=== PATIENT | male | born 1990 | race Caucasian/White ===

== ENCOUNTER 2016-10-29 23:12 | Emergency (ER) | payer SELFPAY ==
[~2016-10-29 23:12] MED LIST: IBUP800T23 PO; METH750T2 PO; PHEN100 PO
[2016-10-29 23:15] VITALS: BP 165/90; PULSE 112; RESP 20; TEMP 98.2; O2SAT 100
[2016-10-29] MEDS ORDERED: MELA5TAB15 PO (23:33)
[2016-10-29] MEDS ORDERED: DILA100C PO (23:33)
--- NOTE | 2016-10-29 23:39 | PD ---
HPI Chief Complaint: Head Injury Time Seen by Provider: 23:39 Travel History International Travel<30 days: No Contact w/Intl Traveler<30days: No Traveled to known affect area: No History of Present Illness HPI 25-year-old male came to the emergency room with history of head injury as he was trying to lay back on the bed he hit the back of his head on the wall. Since then patient says he has been feeling groggy. Upon asking he also said that he smoked some marijuana an hour or 2 before this happened. No history of vomiting. Patient is awake and answering questions appropriately. He has history of seizure and is on Dilantin he said. PFSH Past Medical History Narrative Medical List of his past medical, surgical, social and family history as reviewed from the nursing note. Blood Disorders: No Anxiety: No Depression: No Heart Rhythm Problems: No Cancer: No Cardiovascular Problems: No High Cholesterol: No Chest Pain: No Congestive Heart Failure: No Diabetes: No Diminished Hearing: No Genitourinary: No Immune Disorder: No Musculoskeletal: No Neurologic: Yes (SEIZURES) Psychiatric: No Reproductive: No Respiratory: No Immunizations Current: No Seizures: Yes Sleep Apnea: Yes Thyroid Disease: No Past Surgical History Tonsillectomy: Yes Other Surgery: Yes (TONSILS, RIGHT ARM SURGERY) Social History Alcohol Use: No Tobacco Use: Yes (1 ppd) Substance Use: Yes (marijuana) Allergies-Medications (Allergen,Severity, Reaction): Coded Allergies: No Known Allergies (Unverified , 10/10/15) Comments No known drug allergies. Reported Meds & Prescriptions Reported Meds & Active Scripts Active Reported Dilantin (Phenytoin Extended) 100 Mg Cap 100 Mg PO QID Melatonin 5 Mg Tab 5 Mg PO HS Narrative Medication List of his home medications reviewed from the nursing note. Review of Systems Except as stated in HPI: all other systems reviewed are Neg Physical Exam Narrative GENERAL: Awake, alert, moderate distress SKIN: Focused skin assessment warm/dry. HEAD: Atraumatic. Normocephalic. EYES: Pupils equal and round. No scleral icterus. No injection or drainage. ENT: No nasal bleeding or discharge. Mucous membranes pink and moist. NECK: Trachea midline. No JVD. CARDIOVASCULAR: Regular rate and rhythm. No murmur appreciated. RESPIRATORY: No accessory muscle use. Clear to auscultation. Breath sounds equal bilaterally. GASTROINTESTINAL: Abdomen soft, non-tender, nondistended. Hepatic and splenic margins not palpable. MUSCULOSKELETAL: No obvious deformities. No clubbing. No cyanosis. No edema. NEUROLOGICAL: Awake and alert. No obvious cranial nerve deficits. Motor grossly within normal limits. Normal speech. PSYCHIATRIC: Appropriate mood and affect; insight and judgment normal. Data Data Last Documented VS Orders Orders Phenytoin (Dilantin) (10/29/16 23:50) Ct Brain W/O Iv Contrast(Rout) (10/29/16 ) Ice / Cold Pack PRN (10/29/16 23:50) Acetaminophen (Tylenol) (10/30/16 00:00) Complete Blood Count With Diff (10/29/16 23:55) Comprehensive Metabolic Panel (10/29/16 23:55) Labs Laboratory Tests Test 10/30/16 00:45 White Blood Count 7.8 TH/MM3 Red Blood Count 4.18 MIL/MM3 Hemoglobin 13.3 GM/DL Hematocrit 38.7 % Mean Corpuscular Volume 92.6 FL Mean Corpuscular Hemoglobin 31.7 PG Mean Corpuscular Hemoglobin Concent 34.3 % Red Cell Distribution Width 12.9 % Platelet Count 162 TH/MM3 Mean Platelet Volume 7.8 FL Neutrophils (%) (Auto) 61.5 % Lymphocytes (%) (Auto) 27.1 % Monocytes (%) (Auto) 9.8 % Eosinophils (%) (Auto) 1.1 % Basophils (%) (Auto) 0.5 % Neutrophils # (Auto) 4.8 TH/MM3 Lymphocytes # (Auto) 2.1 TH/MM3 Monocytes # (Auto) 0.8 TH/MM3 Eosinophils # (Auto) 0.1 TH/MM3 Basophils # (Auto) 0.0 TH/MM3 CBC Comment DIFF FINAL Differential Comment Blood Urea Nitrogen 16 MG/DL Creatinine 0.95 MG/DL Random Glucose 112 MG/DL Total Protein 6.1 GM/DL Albumin 3.5 GM/DL Calcium Level 8.0 MG/DL Alkaline Phosphatase 53 U/L Aspartate Amino Transf (AST/SGOT) 14 U/L Alanine Aminotransferase (ALT/SGPT) 26 U/L Total Bilirubin 0.2 MG/DL Sodium Level 143 MEQ/L Potassium Level 3.5 MEQ/L Chloride Level 110 MEQ/L Carbon Dioxide Level 26.6 MEQ/L Anion Gap 6 MEQ/L Estimat Glomerular Filtration Rate 95 ML/MIN Phenytoin (Dilantin) Level 3.7 MCG/ML MDM Medical Decision Making Medical Screen Exam Complete: Yes Emergency Medical Condition: Yes Medical Record Reviewed: Yes Differential Diagnosis Intracranial bleed, concussion Narrative Course 1:57 AM blood test results are back. They're within acceptable limits. His Dilantin level is low. Head CT is negative. I'll discharge him home. Procedures EKG Prior to Arrival: No Diagnosis Primary Impression: Closed head injury Qualified Codes: S09.90XA - Unspecified injury of head, initial encounter Additional Impressions: Concussion Qualified Codes: S06.0X0A - Concussion without loss of consciousness, initial encounter Marijuana abuse Referrals: Primary Care Physician Additional Instructions: Apply ice pack on the back of the head. Take Tylenol for headache. Follow-up with your primary care. Med/Other Pt SpecificInfo: No Change to Meds Disposition: 01 DISCHARGE HOME Condition: Stable Zia Maxwell MD Oct 29, 2016 23:39
[2016-10-29 23:40] VITALS: BP 117/59; PULSE 82; RESP 18; O2SAT 95
[2016-10-30] MEDS ORDERED: ACETAMINOPHEN 325 MG TAB PO ONE
--- NOTE | 2016-10-30 00:45 | RADRPT ---
EXAM DATE/TIME: 10/30/2016 00:24 [facility] COMPARISON: CT BRAIN W/O CONTRAST, November 01, 2013, 12:11. INDICATIONS : Trauma, fell and hit back of head. Cephalgia. RADIATION DOSE: 48.51 CTDIvol (mGy) MEDICAL HISTORY : Seizures. SURGICAL HISTORY : None. ENCOUNTER: Initial ACUITY: 1 day PAIN SCALE: 10/10 LOCATION: cranial TECHNIQUE: Multiple contiguous axial images were obtained of the head. Using automated exposure control and adj ustment of the mA and/or kV according to patient size, radiation dose was kept as low as reasonably a chievable to obtain optimal diagnostic quality images. DICOM format image data is available electro nically for review and comparison. FINDINGS: CEREBRUM: The ventricles are normal for age. No evidence of midline shift, mass lesion, hemorrhage or acute in farction. No extra-axial fluid collections are seen. POSTERIOR FOSSA: The cerebellum and brainstem are intact. The 4th ventricle is midline. The cerebellopontine angle i s unremarkable. EXTRACRANIAL: The visualized portion of the orbits is intact. SKULL: The calvaria is intact. No evidence of skull fracture. CONCLUSION: 1. No acute intracranial abnormality. Jonnathan Breen MD on October 30, 2016 at 0:42 Board Certified Radiologist. This report was verified electronically.
[2016-10-30 01:12] LABS: AUTOMATED NEUTROPHIL # 4.8 TH/MM3 (1.8-7.7); BASOPHIL % 0.5 % (0.0-2.0); EOSINOPHIL # 0.1 TH/MM3 (0-0.4); EOSINOPHIL % 1.1 % (0.0-4.0); HEMATOCRIT 38.7 % (39.0-51.0); HEMO FLAGS DIFF FINAL; LYMPH % 27.1 % (9.0-44.0); LYMPHOCYTE # 2.1 TH/MM3 (1.0-4.8); MEAN CELL VOLUME 92.6 FL (80.0-100.0); MEAN CORPUSCULAR HEMOGLOBIN 31.7 PG (27.0-34.0); MEAN CORPUSCULAR HGB CONC 34.3 % (32.0-36.0); MONO % 9.8 % (0.0-8.0); NEUT % 61.5 % (16.0-70.0); PLATELET COUNT 162 TH/MM3 (150-450); RED BLOOD COUNT 4.18 MIL/MM3 (4.50-5.90); RED CELL DISTRIBUTION WIDTH 12.9 % (11.6-17.2); WHITE BLOOD COUNT 7.8 TH/MM3 (4.0-11.0)
[2016-10-30 01:35] LABS: ANION GAP 6 MEQ/L (5-15); AST (GOT) 14 U/L (15-37); BICARBONATE 26.6 MEQ/L (21.0-32.0); BLOOD UREA NITROGEN 16 MG/DL (7-18); CHLORIDE 110 MEQ/L (98-107); GLOMERULAR FILTRATION RATE 95 ML/MIN (>89); POTASSIUM 3.5 MEQ/L (3.5-5.1); SODIUM (NA) 143 MEQ/L (136-145)
[2016-10-30 01:39] LABS: ALKALINE PHOSPHATASE 53 U/L (45-117); ALT (GPT) 26 U/L (12-78); TOTAL BILIRUBIN ADULT 0.2 MG/DL (0.2-1.0)
== END 2016-10-30 02:35 | disposition home or self-care (01) ==
LOC: NEPE 23:12
DX: S06.0X0A Concussion without loss of consciousness, initial encounter (principal); F12.10 Cannabis abuse, uncomplicated; W22.01XA Walked into wall, initial encounter; Y93.89 Activity, other specified
CPT/HCPCS: 70450; 80053; 80185; 85025; 99284

== ENCOUNTER 2017-07-01 18:27 | Emergency (ER) | payer SELFPAY ==
[~2017-07-01] VITALS: Ht 188 cm; Wt 124.0 kg
[~2017-07-01 18:27] MED LIST changes: +DILA100C PO; -IBUP800T23 PO; +MELA5 PO; -METH750T2 PO; -PHEN100 PO
[2017-07-01 18:35] VITALS: BP 144/80; PULSE 95; RESP 18; TEMP 99.7; O2SAT 96
--- NOTE | 2017-07-01 19:35 | PD ---
HPI Chief Complaint: GI Complaint Time Seen by Provider: 19:33 Travel History International Travel<30 days: No Contact w/Intl Traveler<30days: No Traveled to known affect area: No History of Present Illness HPI Patient comes in complaining of a sharp tearing pain to his rectum. She denies any MSM. Patient does state that he is being constipated and has had very hard stools recently. And that the pain started while he was having a bowel movement. Patient denies any alleviating factors. States that is aggravated by having a BM. Patient denies any associated factors such as fever, rash, nausea, vomiting, diarrhea, chest pain, abdominal pain, flank pain. No known drug allergy Past medical history significant for seizures, tonsillectomy, asthma, sleep apnea. PFSH Past Medical History Blood Disorders: No Anxiety: No Depression: No Heart Rhythm Problems: No Cancer: No Cardiovascular Problems: No High Cholesterol: No Chest Pain: No Congestive Heart Failure: No Diabetes: No Diminished Hearing: No Genitourinary: No Immune Disorder: No Musculoskeletal: No Neurologic: Yes (SEIZURES) Psychiatric: No Reproductive: No Respiratory: No Immunizations Current: No Pneumonia: Yes Seizures: Yes Sleep Apnea: Yes (DOESN'T USE CPAP) Thyroid Disease: No Influenza Vaccination: No ?: Not Past Surgical History Tonsillectomy: Yes Other Surgery: Yes (TONSILS, RIGHT ARM SURGERY) Social History Alcohol Use: Yes ("TWICE A YEAR") Tobacco Use: Yes (1 ppd) Substance Use: Yes (marijuana OCCASIONALLY) Allergies-Medications (Allergen,Severity, Reaction): Coded Allergies: No Known Allergies (Unverified Adverse Reaction, Unknown, 07/01/17) Reported Meds & Prescriptions Reported Meds & Active Scripts Active Lidocaine Rectal 5 % Cream 1 Applic RECTAL DAILY PRN Reported Dilantin (Phenytoin Extended) 100 Mg Cap 100 Mg PO 5 TIMES/DAY Melatonin 5 Mg Tab 5 Mg PO HS PRN Review of Systems General / Constitutional: No: Fever Eyes: No: Visual changes HENT: No: Headaches Cardiovascular: No: Chest Pain or Discomfort Respiratory: No: Shortness of Breath Gastrointestinal: Positive: Other Genitourinary: No: Dysuria Musculoskeletal: No: Pain Skin: No Rash Neurologic: No: Weakness Psychiatric: No: Depression Endocrine: No: Polydipsia Hematologic/Lymphatic: No: Easy Bruising Physical Exam Narrative GENERAL: SKIN: Warm and dry. HEAD: Atraumatic. Normocephalic. EYES: Pupils equal and round. No scleral icterus. No injection or drainage. ENT: No nasal bleeding or discharge. Mucous membranes pink and moist. NECK: Trachea midline. No JVD. CARDIOVASCULAR: Regular rate and rhythm. RESPIRATORY: No accessory muscle use. Clear to auscultation. Breath sounds equal bilaterally. GASTROINTESTINAL: Abdomen soft, non-tender, nondistended. GUY Vuong at bedside during rectal exam: No evidence of any external hemorrhoids, the patient is found to have an anal fissure 12:00 region, not actively bleeding at this present time. But sensitive MUSCULOSKELETAL: Extremities without clubbing, cyanosis, or edema. No obvious deformities. NEUROLOGICAL: Awake and alert. No obvious cranial nerve deficits. Motor grossly within normal limits. Five out of 5 muscle strength in the arms and legs. Normal speech. PSYCHIATRIC: Appropriate mood and affect; insight and judgment normal. Data Data Last Documented VS Vital Signs Date Time Temp Pulse Resp B/P (MAP) Pulse Ox O2 Delivery O2 Flow Rate FiO2 07/01/17 18:35 99.7 95 18 144/80 (101) 96 Orders Orders Lidocaine 2% Jelly (Xylocaine 2% Jelly) (07/01/17 20:00) MDM Medical Decision Making Medical Screen Exam Complete: Yes Emergency Medical Condition: Yes Medical Record Reviewed: Yes Differential Diagnosis Hemorrhoid versus anal fissure versus proctitis Narrative Course After clinical evaluation the patient has an anal fissure, no evidence of any infection, no evidence of any active bleeding. Diagnosis Primary Impression: Anal fissure Patient Instructions: Anal Fissure (ED), General Instructions Scripts Lidocaine Rectal (Lidocaine Rectal) 5 % Cream 1 APPLIC RECTAL DAILY Y for PAIN, #1 TUBE 0 Refills Prov: Suman Madsen MD 07/01/17 Disposition: 01 DISCHARGE HOME Condition: Stable Suman Madsen MD July 01, 2017 19:35
[2017-07-01] MEDS ORDERED: LIDO4CRE5 RECTAL (19:43)
[2017-07-01] MEDS ORDERED: LIDOCAINE HCL 2% JELLY 5 ML SYRINGE TOPICAL ONE (20:00)
== END 2017-07-01 20:07 | disposition home or self-care (01) ==
LOC: PHED 18:27
DX: K60.2 Anal fissure, unspecified (principal); G47.30 Sleep apnea, unspecified; F17.200 Nicotine dependence, unspecified, uncomplicated; F12.90 Cannabis use, unspecified, uncomplicated; Z86.69 Personal history of other diseases of the nervous system and sense organs; Z79.899 Other long term (current) drug therapy
CPT/HCPCS: 99284

== ENCOUNTER 2017-07-05 23:15 | Inpatient (IN) | payer SELFPAY ==
[~2017-07-05] VITALS: Ht 188 cm; Wt 123.5 kg
[~2017-07-05 23:15] MED LIST changes: +LIDO4CRE5 RECTAL
[2017-07-05 23:26] VITALS: BP 147/73; PULSE 99; RESP 18; TEMP 99.6; O2SAT 99
--- NOTE | 2017-07-06 00:43 | PD ---
HPI Chief Complaint: Headache Time Seen by Provider: 00:19 Travel History International Travel<30 days: No Contact w/Intl Traveler<30days: No Traveled to known affect area: No History of Present Illness HPI This patient complains of headache. He has bilateral frontal throbbing headache that started at 7 AM this morning. Severity is moderate. He denies head injury or blood thinners. History of epilepsy but has not had a seizure in 2.5 years. He says he had a cold last week but seemed to get over that. He still has a lingering cough producing clear phlegm. He has nausea but no vomiting. Duration 1 day. No alleviating factors. No exacerbating factors. PFSH Past Medical History Blood Disorders: No Anxiety: No Depression: No Heart Rhythm Problems: No Cancer: No Cardiovascular Problems: No High Cholesterol: No Chest Pain: No Congestive Heart Failure: No Diabetes: No Diminished Hearing: No Genitourinary: No Immune Disorder: No Musculoskeletal: No Neurologic: Yes (SEIZURES) Psychiatric: No Reproductive: No Respiratory: No Immunizations Current: No Pneumonia: Yes Seizures: Yes Sleep Apnea: Yes (DOESN'T USE CPAP) Thyroid Disease: No Past Surgical History Tonsillectomy: Yes Other Surgery: Yes (TONSILS, RIGHT ARM SURGERY) Social History Alcohol Use: Yes ("TWICE A YEAR") Tobacco Use: Yes (1 ppd) Substance Use: Yes (marijuana OCCASIONALLY) Allergies-Medications (Allergen,Severity, Reaction): Coded Allergies: No Known Allergies (Unverified Adverse Reaction, Unknown, 07/05/17) Reported Meds & Prescriptions Reported Meds & Active Scripts Active Lidocaine Rectal 5 % Cream 1 Applic RECTAL DAILY PRN Reported Dilantin (Phenytoin Extended) 100 Mg Cap 100 Mg PO 5 TIMES/DAY Melatonin 5 Mg Tab 5 Mg PO HS PRN Review of Systems General / Constitutional: No: Fever Eyes: No: Visual changes HENT: Positive: Headaches Cardiovascular: No: Chest Pain or Discomfort Respiratory: Positive: Cough, No: Shortness of Breath Gastrointestinal: Positive: Nausea, No: Abdominal Pain Genitourinary: No: Dysuria Musculoskeletal: No: Pain Skin: No Rash Neurologic: Positive: Headache (We will), No: Weakness Psychiatric: No: Depression Endocrine: No: Polydipsia Hematologic/Lymphatic: No: Easy Bruising Physical Exam Narrative GENERAL: Well-nourished, well-developed patient in no apparent distress. SKIN: Focused skin assessment reveals no rash and nodules. Skin is Warm and dry. HEAD: Atraumatic. Normocephalic. EYES: Pupils equal and round. No scleral icterus. No injection or drainage. ENT: No nasal bleeding or discharge. Mucous membranes pink and moist. NECK: Trachea midline. No JVD. Neck is supple without meningeal signs. Kernig' s and presents he has are negative CARDIOVASCULAR: Regular rate and rhythm. No murmur appreciated. RESPIRATORY: No accessory muscle use. Clear to auscultation. Breath sounds equal bilaterally. GASTROINTESTINAL: Abdomen soft, non-tender, nondistended. Hepatic and splenic margins not palpable. MUSCULOSKELETAL: No obvious deformities. No clubbing. No cyanosis. No edema. NEUROLOGICAL: Awake and alert. No obvious cranial nerve deficits. Motor grossly within normal limits. Normal speech. PSYCHIATRIC: Appropriate mood and affect; insight and judgment normal. Data Data Last Documented VS Vital Signs Date Time Temp Pulse Resp B/P (MAP) Pulse Ox O2 Delivery O2 Flow Rate FiO2 07/05/17 23:26 99.6 99 18 147/73 (97) 99 MDM Medical Decision Making Medical Screen Exam Complete: Yes Emergency Medical Condition: Yes Medical Record Reviewed: Yes Differential Diagnosis Flu syndrome, meningitis, pneumonia Narrative Course I have reviewed the patient's electronic medical record. I am ordering extensive workup He has no meningeal signs but given his headache and nausea and fever this has to be considered I discussed lumbar puncture with him and he is not happy about it and he wants to think about it and says he will not commit to allowing it to be done at this time. I have ordered labs and chest x-ray and flu test and CT brain We will give him a dose of medication for symptom relief Case checked out at 1 AM, end of shift Klever Castro MD July 06, 2017 00:43
[2017-07-06] MEDS ORDERED: PROMETHAZINE INJ 25 MG/ML VIAL IM ONE (01:00)
[2017-07-06] MEDS ORDERED: MORPHINE SULFATE 4 MG/ML INJ IV PUSH ONE (01:00)
--- NOTE | 2017-07-06 01:20 | RADRPT ---
EXAM DATE/TIME: 07/06/2017 00:58 [facility] COMPARISON: No previous studies available for comparison. INDICATIONS : Fever. MEDICAL HISTORY : Seizures. SURGICAL HISTORY : None. ENCOUNTER: Initial ACUITY: 1 day PAIN SCORE: 0/10 LOCATION: Bilateral chest FINDINGS: A single view of the chest demonstrates the lungs to be symmetrically aerated without evidence of mas s, infiltrate or effusion. The cardiomediastinal contours are unremarkable. Osseous structures are intact. CONCLUSION: No acute disease. Giancarlo Buchanan MD on July 06, 2017 at 1:18 Board Certified Radiologist. This report was verified electronically.
[2017-07-06 01:43] LABS: AUTOMATED NEUTROPHIL # 10.6 TH/MM3 (1.8-7.7); BASOPHIL # 0.1 TH/MM3 (0-0.2); BASOPHIL % 0.4 % (0.0-2.0); EOSINOPHIL % 0.2 % (0.0-4.0); HEMATOCRIT 44.9 % (39.0-51.0); HEMOGLOBIN 15.8 GM/DL (13.0-17.0); LYMPH % 18.2 % (9.0-44.0); LYMPHOCYTE # 2.5 TH/MM3 (1.0-4.8); MEAN CELL VOLUME 89.5 FL (80.0-100.0); MEAN CORPUSCULAR HEMOGLOBIN 31.5 PG (27.0-34.0); MEAN CORPUSCULAR HGB CONC 35.2 % (32.0-36.0); MONO % 5.8 % (0.0-8.0); MONOCYTE # 0.8 TH/MM3 (0-0.9); NEUT % 75.4 % (16.0-70.0); PLATELET COUNT 195 TH/MM3 (150-450); RED BLOOD COUNT 5.02 MIL/MM3 (4.50-5.90); RED CELL DISTRIBUTION WIDTH 12.9 % (11.6-17.2)
[2017-07-06 01:50] LABS: PROTHROMBIN TIME - PATIENT 10.6 SEC (9.8-11.6)
[2017-07-06 01:54] LABS: BICARBONATE 22.9 MEQ/L (21.0-32.0); CALCIUM 8.6 MG/DL (8.5-10.1); CREATININE 0.79 MG/DL (0.60-1.30)
--- NOTE | 2017-07-06 02:01 | RADRPT ---
EXAM DATE/TIME: 07/06/2017 01:36 [facility] COMPARISON: CT BRAIN W/O CONTRAST, October 30, 2016, 0:24. INDICATIONS : Headaches. RADIATION DOSE: 49.85 CTDIvol (mGy) MEDICAL HISTORY : Seizures. Asthma SURGICAL HISTORY : None. ENCOUNTER: Initial ACUITY: 1 day PAIN SCALE: 10/10 LOCATION: cranial TECHNIQUE: Multiple contiguous axial images were obtained of the head. Using automated exposure control and adj ustment of the mA and/or kV according to patient size, radiation dose was kept as low as reasonably a chievable to obtain optimal diagnostic quality images. DICOM format image data is available electro nically for review and comparison. FINDINGS: CEREBRUM: The ventricles are normal for age. No evidence of midline shift, mass lesion, hemorrhage or acute in farction. No extra-axial fluid collections are seen. POSTERIOR FOSSA: The cerebellum and brainstem are intact. The 4th ventricle is midline. The cerebellopontine angle i s unremarkable. EXTRACRANIAL: The visualized portion of the orbits is intact. SKULL: The calvaria is intact. No evidence of skull fracture. CONCLUSION: Normal examination for a patient of this age. No significant change has occurred. Giancarlo Buchanan MD on July 06, 2017 at 1:57 Board Certified Radiologist. This report was verified electronically.
[2017-07-06] MEDS ORDERED: PROCHLORPERAZINE INJ 10 MG/2 ML VIAL IV PUSH ONE (02:45)
[2017-07-06] MEDS ORDERED: diphenhydrAMINE HCL 50 MG/ML VIAL IV PUSH ONE (02:45)
[2017-07-06] MEDS ORDERED: cefTRIAXone INJ 2,000 MG in SODIUM CHLORIDE 0.9% INJ 100 ML IV ONE (03:30)
[2017-07-06] MEDS ORDERED: VANCOMYCIN INJ 2,250 MG in SODIUM CHLORID 0.9% 500 ML INJ 500 ML IV ONE (03:30)
--- NOTE | 2017-07-06 03:43 | PD ---
Physical Exam Date Seen by Provider: July 06, 2017 Time Seen by Provider: 03:37 Data Data Last Documented VS Vital Signs Date Time Temp Pulse Resp B/P (MAP) Pulse Ox O2 Delivery O2 Flow Rate FiO2 07/05/17 23:26 99.6 99 18 147/73 (97) 99 Orders Orders Iv Access Insert/Monitor (07/06/17 00:44) Complete Blood Count With Diff (07/06/17 00:44) Basic Metabolic Panel (Bmp) (07/06/17 00:44) Prothrombin Time / Inr (Pt) (07/06/17 00:44) Act Partial Throm Time (Ptt) (07/06/17 00:44) Ct Brain W/O Iv Contrast(Rout) (07/06/17 ) Chest, Single Ap (07/06/17 ) Influenzae A/B Antigen (07/06/17 00:44) Promethazine Inj (Phenergan Inj) (07/06/17 01:00) Morphine Inj (Morphine Inj) (07/06/17 01:00) Diphenhydramine Inj (Benadryl Inj) (07/06/17 02:45) Prochlorperazine Inj (Compazine Inj) (07/06/17 02:45) Csf Cell Count + Differential (07/06/17 02:36) Glucose, Csf (07/06/17 02:36) Total Protein, Csf (07/06/17 02:36) Csf Culture And Gram Stain (07/06/17 02:36) Blood Culture (07/06/17 03:29) Ceftriaxone Inj (Rocephin Inj) (07/06/17 03:30) Vancomycin Inj (Vancomycin Inj) (07/06/17 03:30) Acyclovir Inj (Zovirax Inj) (07/06/17 03:45) Admit Order (Ed Use Only) (07/06/17 ) Vital Signs (Adult) Q4H (07/06/17 04:25) Diet Npo (07/06/17 Breakfast) Activity Oob With Assistance (07/06/17 04:25) Notify Dr: Other (07/06/17 04:25) Labs Laboratory Tests Test 07/06/17 01:20 White Blood Count 14.0 TH/MM3 Red Blood Count 5.02 MIL/MM3 Hemoglobin 15.8 GM/DL Hematocrit 44.9 % Mean Corpuscular Volume 89.5 FL Mean Corpuscular Hemoglobin 31.5 PG Mean Corpuscular Hemoglobin Concent 35.2 % Red Cell Distribution Width 12.9 % Platelet Count 195 TH/MM3 Mean Platelet Volume 8.0 FL Neutrophils (%) (Auto) 75.4 % Lymphocytes (%) (Auto) 18.2 % Monocytes (%) (Auto) 5.8 % Eosinophils (%) (Auto) 0.2 % Basophils (%) (Auto) 0.4 % Neutrophils # (Auto) 10.6 TH/MM3 Lymphocytes # (Auto) 2.5 TH/MM3 Monocytes # (Auto) 0.8 TH/MM3 Eosinophils # (Auto) 0.0 TH/MM3 Basophils # (Auto) 0.1 TH/MM3 CBC Comment DIFF FINAL Differential Comment Prothrombin Time 10.6 SEC Prothromb Time International Ratio 1.0 RATIO Activated Partial Thromboplast Time 26.6 SEC Blood Urea Nitrogen 13 MG/DL Creatinine 0.79 MG/DL Random Glucose 111 MG/DL Calcium Level 8.6 MG/DL Sodium Level 139 MEQ/L Potassium Level 3.9 MEQ/L Chloride Level 108 MEQ/L Carbon Dioxide Level 22.9 MEQ/L Anion Gap 8 MEQ/L Estimat Glomerular Filtration Rate 117 ML/MIN [facility] Medical Record Reviewed: Yes Supervised Visit with GIULIANA: Yes Interpretation(s) CBC & BMP Diagram 07/06/17 01:20 Calcium Level 8.6 Last [address] 07/06/17 0000 Signed Impressions: Service Date/Time: Thursday, July 06, 2017 01:36 - CONCLUSION: Normal examination for a patient of this age. No significant change has occurred. Giancarlo Buchanan MD Chest X-Ray 07/06/17 0000 Signed Impressions: Service Date/Time: Thursday, July 06, 2017 00:58 - CONCLUSION: No acute disease. Giancarlo Buchanan MD Differential Diagnosis . Narrative Course This is a 26-year-old white male who is seen earlier by Dr. BARTH and I was asked to follow-up on the patient's laboratory tests and CAT scan. He had a concern that the patient may potentially be getting secondary meningitis. He has requested that the patient undergo lumbar puncture. I have obtained consent for lumbar puncture from the patient. We discussed the benefits and the risks. 3 attempts at obtaining CSF have been unsuccessful. The patient has been empirically treated for potential meningitis. He is given 2 g of Rocephin IV and 20 mg/kg of vancomycin as well as 10 mg/kg of acyclovir. The patient will be admitted to the [facility] service and have LP under fluoroscopy by IR. 2 sets of blood cultures have also been added on. I discussed the case with Dr. Kimbrough. She is aware of the patient and plan to admit the patient. She agrees that having IR perform LP in the morning and she has declined to attempt LP herself. This is cephalgia, fever rule out meningitis The case has been discussed with Dr. Oliver who is agreed to admit the patient for observation Procedures Procedure Narrative LUMBAR PUNCTURE: The patient was placed in the seated position leaning over bedside table. The lumbar area of the back was prepped with Betadine and sterilely draped. The L3 -- L4 interspace was infiltrated with 1% lidocaine plain. Number 21 gauge LP needle was placed in the interspace. 3 attempts at obtaining CSF have been performed unsuccessfully.. Patient tolerated procedure well. Patient is made aware of the failed attempts. Diagnosis Primary Impression: Cephalgia Additional Impressions: Fever Rule out meningitis Admitting Information Admitting Physician Requests: Observation Condition: Stable Giancarlo Roberson July 06, 2017 03:43
[2017-07-06] MEDS ORDERED: ACYCLOVIR INJ 1,050 MG in SODIUM CHLORIDE 0.9% INJ 150 ML IV ONE (03:45)
[2017-07-06 04:00] VITALS: BP 129/87; PULSE 96; RESP 16; O2SAT 100
[2017-07-06] MEDS ORDERED: SODIUM CHLOR 0.9% 1000 ML INJ 1,000 ML IV SCH (04:19)
[2017-07-06] MEDS ORDERED: GADODIAMIDE PF 287 MG/ML 20 ML VIAL (for RAD MRI) IVCONTRAST ONE (04:27)
[2017-07-06] MEDS ORDERED: SODIUM CHLORIDE 0.9% FLUSH 10 ML FLUSH IV FLUSH PRN (04:30)
[2017-07-06] MEDS ORDERED: ONDANSETRON ODT 4 MG TAB PO PRN (04:30)
[2017-07-06] MEDS ORDERED: SENNOSIDES 8.6 MG TAB PO PRN (04:30)
[2017-07-06] MEDS ORDERED: NALOXONE HCL 0.4 MG/ML AMP IV PUSH PRN (04:30)
[2017-07-06] MEDS ORDERED: BISACODYL 10 MG SUPP RECTAL PRN (04:30)
[2017-07-06] MEDS ORDERED: LACTULOSE SYRUP 20 GM/30 ML CUP PO PRN (04:30)
[2017-07-06] MEDS ORDERED: ACETAMINOPHEN 325 MG TAB PO PRN (04:30)
[2017-07-06] MEDS ORDERED: Vancomycin Consult Pharmacy 1 EA OTHER SCH (04:30)
[2017-07-06] MEDS ORDERED: MAGNESIUM HYDROXIDE SUSP 30 ML CUP PO PRN (04:30)
[2017-07-06] MEDS ORDERED: PHENYTOIN SODIUM 100 MG CAP PO ONE ×2 (05:30→15:30)
[2017-07-06 08:00] VITALS: BP 133/82; PULSE 95; RESP 20; TEMP 98.1; O2SAT 97
[2017-07-06] MEDS: SODIUM CHLORIDE 0.9% FLUSH 10 ML FLUSH IV FLUSH SCH ×2 (08:20→21:00)
[2017-07-06] MEDS: DOCUSATE SODIUM 50 MG/SENNA 8.6 MG TAB PO SCH ×2 (08:21→21:35)
[2017-07-06] MEDS: ACETAMIN 325 MG/BUTALBITAL 50 MG/CAFFEINE 40 MG TAB PO PRN ×2 (10:22→21:36)
--- NOTE | 2017-07-06 11:51 | RADRPT ---
EXAM DATE/TIME: 07/06/2017 11:24 [facility] COMPARISON: No previous studies available for comparison. INDICATIONS : Patient presents with severe headaches in need of lumbar puncture with opening pressures for further evaluation. MEDICAL HISTORY : Smoking hx Seizures SURGICAL HISTORY : Tonsillectomy Right arm sx ENCOUNTER: Initial ACUITY: 1 day PAIN SCORE: 10/10 LOCATION: Bilateral Frontal throbbing headache LUMBAR PUNCTURE TIME: 11:21 hours FLUORO TIME: 0.21 minutes IMAGE SERIES: 2 ACCESS LEVEL: L3-4 OPENING PRESSURE: 27 cm of water CLOSING PRESSURE: Not requested. FLUID: 10 cc of clear CSF was collected and sent to the laboratory for analysis. PROCEDURE : 1. Fluoroscopic guided lumbar puncture. 2. Recording of opening pressure. The risks, benefits and alternatives to the procedure were explained and verbal and written consent w as obtained. The site was prepped in sterile fashion. Full sterile technique was used, including ca p, mask, sterile gloves and gown and a large sterile sheet. Hand hygiene and 2% chlorhexidine and/or betadine/alcohol prep was utilized per protocol for cutaneous antisepsis. The skin and subcutaneous tissues were infiltrated with local anesthetic solution. With fluoroscopic guidance the lumbar thecal sac was punctured at the above level described above and the opening pressure was recorded. The above described fluid was removed without difficulty. The patient tolerated the procedure well and there were no complications. CONCLUSION: Uncomplicated fluoroscopically guided lumbar puncture with pressures as above. Jonnathan Breen MD on July 06, 2017 at 11:48 Board Certified Radiologist. This report was verified electronically.
[2017-07-06 12:00] VITALS: BP 141/76; PULSE 80; RESP 20; TEMP 97.8; O2SAT 99
--- NOTE | 2017-07-06 12:10 | HHI.HP ---
[facility] No Primary Care Physician Admission Diagnosis Cephalgia, fever, rule out meningitis Diagnoses: (1) History of seizure (2) Cephalalgia Chief Complaint: Bilateral frontal headaches Travel History International Travel<30 Days: No Contact w/Intl Traveler <30 Da: No Traveled to Known Affected Are: No History of Present Illness 26-year-old male with a history of seizure disorder however without any seizure activity over the past 3 years presented to the ED last night for evaluation of bilateral frontal throbbing headache, which started around 7 AM yesterday. Patient reported severe frontal pain. Stated the headaches are associated with photophobia, nausea without any emesis. He however denied any neck pain, febrile episode. He only complains of lingering phlegm producing cough. Review of Systems Except as stated in HPI: all other systems reviewed are Neg Past Family Social History Past Medical History Seizure disorder Obstructive sleep apnea Past Surgical History Tonsillectomy Right arm surgery Reported Medications Dilantin (Phenytoin Extended) 100 Mg Cap 100 Mg PO 5 TIMES/DAY Melatonin 5 Mg Tab 5 Mg PO HS PRN Allergies: Coded Allergies: No Known Allergies (Unverified Adverse Reaction, Unknown, 07/05/17) Family History One aunt with migraine headache Social History Alcohol Use: Yes ("TWICE A YEAR") Tobacco Use: Yes (1 ppd) Substance Use: Yes (marijuana OCCASIONALLY) Physical Exam Vital Signs Vital Signs Date Time Temp Pulse Resp B/P (MAP) Pulse Ox O2 Delivery O2 Flow Rate FiO2 07/06/17 08:00 98.1 95 20 133/82 (99) 97 07/06/17 06:15 07/06/17 04:00 96 16 129/87 (101) 100 Room Air 07/05/17 23:26 99.6 99 18 147/73 (97) 99 Physical Exam GENERAL: This is a well-nourished, well-developed patient, in no apparent distress. SKIN: No rashes, ecchymoses or lesions. Cool and dry. HEAD: Atraumatic. Normocephalic. No temporal or scalp tenderness. EYES: Pupils equal round and reactive. Extraocular motions intact. No scleral icterus. No injection or drainage. ENT: Nose without bleeding, purulent drainage or septal hematoma. Throat without erythema, tonsillar hypertrophy or exudate. Uvula midline. Airway patent. NECK: Trachea midline. No JVD or lymphadenopathy. Supple, nontender, no meningeal signs. CARDIOVASCULAR: Regular rate and rhythm without murmurs, gallops, or rubs. RESPIRATORY: Clear to auscultation. Breath sounds equal bilaterally. No wheezes , rales, or rhonchi. GASTROINTESTINAL: Abdomen soft, non-tender, nondistended. No hepato-splenomegaly , or palpable masses. No guarding. MUSCULOSKELETAL: Extremities without clubbing, cyanosis, or edema. No joint tenderness, effusion, or edema noted. No calf tenderness. Negative Homans sign bilaterally. NEUROLOGICAL: Awake and alert. Cranial nerves II through XII intact. Motor and sensory grossly within normal limits. Five out of 5 muscle strength in all muscle groups. Normal speech. Laboratory Laboratory Tests Test 07/06/17 01:20 07/06/17 11:21 White Blood Count 14.0 Red Blood Count 5.02 Hemoglobin 15.8 Hematocrit 44.9 Mean Corpuscular Volume 89.5 Mean Corpuscular Hemoglobin 31.5 Mean Corpuscular Hemoglobin Concent 35.2 Red Cell Distribution Width 12.9 Platelet Count 195 Mean Platelet Volume 8.0 Neutrophils (%) (Auto) 75.4 Lymphocytes (%) (Auto) 18.2 Monocytes (%) (Auto) 5.8 Eosinophils (%) (Auto) 0.2 Basophils (%) (Auto) 0.4 Neutrophils # (Auto) 10.6 Lymphocytes # (Auto) 2.5 Monocytes # (Auto) 0.8 Eosinophils # (Auto) 0.0 Basophils # (Auto) 0.1 CBC Comment DIFF FINAL Differential Comment Prothrombin Time 10.6 Prothromb Time International Ratio 1.0 Activated Partial Thromboplast Time 26.6 Blood Urea Nitrogen 13 Creatinine 0.79 Random Glucose 111 Calcium Level 8.6 Sodium Level 139 Potassium Level 3.9 Chloride Level 108 Carbon Dioxide Level 22.9 Anion Gap 8 Estimat Glomerular Filtration Rate 117 Date/Time Source Procedure Growth Status 07/06/17 04:10 Blood Peripheral Aerobic Blood Culture Pending Received 07/06/17 04:10 Blood Peripheral Anaerobic Blood Culture Pending Received 07/06/17 11:21 Cerebral Spinal Fluid Lumbar Puncture Acid Fast Stain Pending Received 07/06/17 11:21 Cerebral Spinal Fluid Lumbar Puncture Mycobacterial Culture Pending Received 07/06/17 01:20 Nasal Washing Influenza Types A,B Antigen (SAMREEN) - Final NEGATIVE FOR FLU A AND B ANTIGEN.... Complete Result Diagram: 07/06/17 0120 07/06/17 0120 Imaging Last Impressions Lumbar Puncture Fluoroscopy 07/06/17 0000 Signed Impressions: Service Date/Time: Thursday, July 06, 2017 11:24 - CONCLUSION: Uncomplicated fluoroscopically guided lumbar puncture with pressures as above. Jonnathan Breen MD Head CT 07/06/17 0000 Signed Impressions: Service Date/Time: Thursday, July 06, 2017 01:36 - CONCLUSION: Normal examination for a patient of this age. No significant change has occurred. Giancarlo Buchanan MD Chest X-Ray 07/06/17 0000 Signed Impressions: Service Date/Time: Thursday, July 06, 2017 00:58 - CONCLUSION: No acute disease. Giancarlo Buchanan MD Septic Shock Reassessment Septic shock perfusion: reassessment completed Caprini VTE Risk Assessment Caprini VTE Risk Assessment: No/Low Risk (score <= 1) Caprini Risk Assessment Model Point Value = 1 Point Value = 2 Point Value = 3 Point Value = 5 Age 41-60 Minor surgery BMI > 25 kg/m2 Swollen legs Varicose veins or History of unexplained or recurrent spontaneous Oral contraceptives or hormone replacement Sepsis (< 1 month) Serious lung disease, including pneumonia (< 1 month) Abnormal pulmonary function Acute myocardial infarction Congestive heart failure (< 1 month) History of inflammatory bowel disease Medical patient at bed rest Age 61-74 Arthroscopic surgery Major open surgery (> 45 min) Laparoscopic surgery (> 45 min) Malignancy Confined to bed (> 72 hours) Immobilizing plaster cast Central venous access Age >= 75 History of VTE Family history of VTE Factor V Leiden Prothrombin [id number] Lupus anticoagulant Anticardiolipin antibodies Elevated serum homocysteine Heparin-induced thrombocytopenia Other congenital or acquired thrombophilia Stroke (< 1 month) Elective arthroplasty Hip, pelvis, or leg fracture Acute spinal cord injury (< 1 month) Prophylaxis Regimen Total Risk Factor Score Risk Level Prophylaxis Regimen 0-1 Low Early ambulation 2 Moderate Order ONE of the following: *Sequential Compression Device (SCD) *Heparin 5000 units SQ BID 3-4 Higher Order ONE of the following medications: *Heparin 5000 units SQ TID *Enoxaparin/Lovenox 40 mg SQ daily (WT < 150 kg, CrCl > 30 mL/min) *Enoxaparin/Lovenox 30 mg SQ daily (WT < 150 kg, CrCl > 10-29 mL/min) *Enoxaparin/Lovenox 30 mg SQ BID (WT < 150 kg, CrCl > 30 mL/min) AND/OR *Sequential Compression Device (SCD) 5 or more Highest Order ONE of the following medications: *Heparin 5000 units SQ TID (Preferred with Epidurals) *Enoxaparin/Lovenox 40 mg SQ daily (WT < 150 kg, CrCl > 30 mL/min) *Enoxaparin/Lovenox 30 mg SQ daily (WT < 150 kg, CrCl > 10-29 mL/min) *Enoxaparin/Lovenox 30 mg SQ BID (WT < 150 kg, CrCl > 30 mL/min) AND *Sequential Compression Device (SCD) Assessment and Plan Problem List: (1) Cephalalgia ICD Code: R51 - Headache (2) History of seizure ICD Code: Z87.898 - Personal history of other specified conditions Assessment and Plan 26-year-old man with Cephalgia Bilateral frontal headache Head CT noted and reviewed by me without any acute finding Chest x-ray noted and reviewed by me without any pulmonary disease Rule out meningitis LP pending, continue with empiric treatment with antibiotics Start Fioricet Neurology consultation as needed History of seizure disorder Resume Dilantin, and monitor level Tobacco abuse Tobacco counseling cessation provided DVT prophylaxis: Low risk for VTE Code Status Full code Discussed Condition With Patient Barber Rojo MD July 06, 2017 12:10
[2017-07-06 12:17] LABS: SUPERNATE COLOR TUBE #1 CLEAR (CLEAR)
[2017-07-06 12:19] LABS: TOTAL PROTEIN,CSF 161.4 MG/DL (15.0-45.0)
[2017-07-06 12:36] LABS: RBC TUBE #4 25 /MM3; WBC TUBE #4 495 /MM3 (0-10)
[2017-07-06 12:41] LABS: CSF LYMPHOCYTES 92 %; CSF MONOCYTES 7 %; CSF NEUTROPHILS 1 %
[2017-07-06] MEDS: ACYCLOVIR INJ 1,050 MG in SODIUM CHLORIDE 0.9% INJ 150 ML IV SCH ×2 (13:02→20:00)
[2017-07-06 16:00] VITALS: BP 146/91; PULSE 93; RESP 20; TEMP 98.3; O2SAT 97
[2017-07-06] MEDS ORDERED: VANCOMYCIN INJ 2,500 MG in SODIUM CHLORID 0.9% 500 ML INJ 500 ML IV SCH (16:00)
[2017-07-06] MEDS ORDERED: VANCOMYCIN INJ 2,250 MG in SODIUM CHLORID 0.9% 500 ML INJ 500 ML IV SCH (16:00)
--- NOTE | 2017-07-06 16:18 | PD.CONS ---
History of Present Illness Service Neurology Consult Requested By medical Reason for Consult headache Primary Care Physician No Primary Care Physician History of Present Illness 26-year-old male admitted for severe headaches. started yesterday, holocephalic. throbbing, mild neck pain. had a fever yesterday. no focal weakness. no vision loss. 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 no obvious known sick contacts. 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 no head/neck trauma. Review of Systems Except as stated in HPI: all other systems reviewed are Neg Past Family Social History Past Medical History Seizure disorder Obstructive sleep apnea Past Surgical History Tonsillectomy Right arm surgery Reported Medications Dilantin (Phenytoin Extended) 100 Mg Cap 100 Mg PO 5 TIMES/DAY Melatonin 5 Mg Tab 5 Mg PO HS PRN Allergies: Coded Allergies: No Known Allergies (Unverified Adverse Reaction, Unknown, 07/05/17) Family History One aunt with migraine headache Social History Alcohol Use: Yes ("TWICE A YEAR") Tobacco Use: Yes (1 ppd) Review of Systems All other ROS: ROS reviewed as documented in chart Past Family Social History Allergies: Coded Allergies: No Known Allergies (Unverified Adverse Reaction, Unknown, 07/05/17) Active Ordered Medications Current Medications Medications (Trade) Dose Ordered Sig/Arely Route Start Time Stop Time Status Last Admin Acyclovir Sodium 1050 mg/Sodium Chloride 150 ml @ 150 mls/hr Q8H IV 07/06/17 12:00 07/06/17 13:02 Pharmacy Profile Note 0 ml @ 0 mls/hr UNSCH OTHER 07/06/17 04:30 Ceftriaxone Sodium 2000 mg/ Sodium Chloride 100 ml @ 200 mls/hr Q12H IV 07/06/17 16:00 (NS Flush) 2 ml UNSCH PRN IV FLUSH 07/06/17 04:30 (NS Flush) 2 ml BID IV FLUSH 07/06/17 09:00 07/06/17 08:20 (Tylenol) 650 mg Q4H PRN PO 07/06/17 04:30 (Zofran Odt) 4 mg Q6H PRN PO 07/06/17 04:30 (Narcan Inj) 0.4 mg UNSCH PRN IV PUSH 07/06/17 04:30 ([place]-Colace) 1 tab BID PO 5/15/18 09:00 07/06/17 08:21 (Milk Of Magnesia Liq) 30 ml Q12H PRN PO 07/06/17 04:30 (Senokot) 17.2 mg Q12H PRN PO 07/06/17 04:30 (Dulcolax Supp) 10 mg DAILY PRN RECTAL 07/06/17 04:30 (Lactulose Liq) 30 ml DAILY PRN PO 07/06/17 04:30 (Fioricet 325-50-40) 1 tab Q6H PRN PO 07/06/17 09:45 07/06/17 10:22 Vancomycin HCl 2500 mg/Sodium Chloride 525 ml @ 250 mls/hr Q12H IV 07/06/17 16:00 [place] Ordered [facility] Info) SPECIFIC LAB TO BE ... ONCE ONCE .XX 07/08/17 03:45 07/08/17 03:46 (Dilantin) 100 mg 5 TIMES A DAY PO 07/06/17 18:00 Exam I&O / VS Vital Signs Date Time Temp Pulse Resp B/P (MAP) Pulse Ox O2 Delivery O2 Flow Rate FiO2 07/06/17 12:00 97.8 80 20 141/76 (97) 99 07/06/17 08:00 98.1 95 20 133/82 (99) 97 07/06/17 06:15 07/06/17 04:00 96 16 129/87 (101) 100 Room Air 07/05/17 23:26 99.6 99 18 147/73 (97) 99 General: Alert and Oriented Eye: EOMI, Normal conjuctiva Respiratory: Non-labored respirations Cardiology: Normal rate Musculoskeletal: ROM Neurologic: Alert, Oriented, Normal sensory, Normal motor, No focal defects, CN II-XII intact, Normal DTR's Psychiatric: Cooperative, Appropriate mood & affect, Normal judgement Exam Comments alert, ox 3, follows, ou 3-2mm, eomi, neck rom full but mild tenderness, able to flex head to chest, no religion tenderness, osman to gravity, brisk but sym le reflexes, no clonus, planterflexor Review/Management Diagnosis/Plan: (1) Viral meningitis ICD Codes: A87.9 - Viral meningitis, unspecified Status: Acute Plan: lymphocytic pleocytosis with elevated wbc >400 and elevated protein and clinical symptoms suggestive of vial meningitis recs f/u mri brain w/wo contrast/mrv brain ID eval continue iv acyclovir pain control follow exam (2) History of seizure ICD Codes: Z87.898 - Personal history of other specified conditions Status: Chronic Plan: eeg f/u dilantin level Chapin Baptiste MD July 06, 2017 16:18
--- NOTE | 2017-07-06 16:55 | PD.ID.CON ---
History of Present Illness Service Infectious disease Consult Requested By Hospitalist service Reason for Consult Evaluation and management of possible meningitis Primary Care Physician No Primary Care Physician Diagnoses: History of Present Illness Patient seen and examined with Dr. Wheeler This is a 26-year-old male with a history of seizure disorder on Dilantin who presented to [facility] ED with complaints of severe frontal headache and neck pain x 2 days. Patient reports associated photophobia and nausea but no emesis. He denies any associated fever or chills. He denies any vision changes. He denies any ear pain/drainage/ringing. He denies any nasal drainage or sinus problems. Patient states he had a upper respiratory infection last week and completed 5 days of Amoxicillin. Patient states he responded well to the treatment and felt good except for lingering cough with whitish/brown sputum production. Patient reports his last "mini seizure" was last week. He is prescribed Dilantin which he is to take 200mg in am, 100mg in afternoon and 200mg at night. Due to heartburn associated with taking the medication, he takes 100mg 5 times a day and admits to occasionally missing doses. He has a history of concussion last December. He reports occasional cold sores the last one being a month ago but denies any genital involvement. He denies any previous history of meningitis. He denies any recent travel or tick bites. He denies any known sick contacts. Patient underwent a lumbar puncture with initial CSF culture showing many WBCs and no organisms. CSF fluid with 495 WBCs and elevated total protein of 161.4. Patient is afebrile. His CBC was significant for leukocytosis with white count of 14, neutrophil % 75.4 and neutrophil count 10.6. Chemistry panel was essentially unremarkable. His Phenytoin level is low at 2.8. Infectious disease consulted for evaluation and management of possible meningitis. (Tiffanie Gallardo) Review of Systems Except as stated in HPI: all other systems reviewed are Neg (Tiffanie Gallardo) Past Family Social History Allergies: Coded Allergies: No Known Allergies (Unverified Adverse Reaction, Unknown, 07/05/17) Past Medical History Seizure disorder Past Surgical History Tonsillectomy Right arm surgery Reported Medications Lidocaine Rectal 5 % Cream 1 Applic RECTAL DAILY PRN Dilantin (Phenytoin Extended) 100 Mg Cap 100 Mg PO 5 TIMES/DAY Melatonin 5 Mg Tab 5 Mg PO HS PRN Active Ordered Medications Current Medications Medications (Trade) Dose Ordered Sig/Arely Route Start Time Stop Time Status Last Admin Acyclovir Sodium 1050 mg/Sodium Chloride 150 ml @ 150 mls/hr Q8H IV 07/06/17 12:00 07/06/17 13:02 Pharmacy Profile Note 0 ml @ 0 mls/hr UNSCH OTHER 07/06/17 04:30 Ceftriaxone Sodium 2000 mg/ Sodium Chloride 100 ml @ 200 mls/hr Q12H IV 07/06/17 16:00 (NS Flush) 2 ml UNSCH PRN IV FLUSH 07/06/17 04:30 (NS Flush) 2 ml BID IV FLUSH 07/06/17 09:00 07/06/17 08:20 (Tylenol) 650 mg Q4H PRN PO 07/06/17 04:30 (Zofran Odt) 4 mg Q6H PRN PO 07/06/17 04:30 (Narcan Inj) 0.4 mg UNSCH PRN IV PUSH 07/06/17 04:30 (Linda-Colace) 1 tab BID PO 07/06/17 09:00 07/06/17 08:21 (Milk Of Magnesia Liq) 30 ml Q12H PRN PO 07/06/17 04:30 (Senokot) 17.2 mg Q12H PRN PO 07/06/17 04:30 (Dulcolax Supp) 10 mg DAILY PRN RECTAL 07/06/17 04:30 (Lactulose Liq) 30 ml DAILY PRN PO 07/06/17 04:30 (Fioricet 325-50-40) 1 tab Q6H PRN PO 07/06/17 09:45 07/06/17 10:22 Vancomycin HCl 2500 mg/Sodium Chloride 525 ml @ 250 mls/hr Q12H IV 07/06/17 16:00 ([facility] Ordered Lab Info) SPECIFIC LAB TO BE ... ONCE ONCE .XX 07/08/17 03:45 07/08/17 03:46 (Dilantin) 100 mg 5 TIMES A DAY PO 07/06/17 18:00 ([place] 7.5-325 Mg) 1 tab Q6H PRN PO 07/06/17 16:15 Family History Aunt with hx of migraines Social History Patient reports tobacco use. He reports rare EtOH consumption 2x/year. He reports occasional marijuana use. (Tiffanie Gallardo) Physical Exam Vital Signs Vital Signs Date Time Temp Pulse Resp B/P (MAP) Pulse Ox O2 Delivery O2 Flow Rate FiO2 07/06/17 12:00 97.8 80 20 141/76 (97) 99 07/06/17 08:00 98.1 95 20 133/82 (99) 97 07/06/17 06:15 07/06/17 04:00 96 16 129/87 (101) 100 Room Air 07/05/17 23:26 99.6 99 18 147/73 (97) 99 Physical Exam GENERAL: This is a well-nourished, well-developed male patient, in no apparent distress. Awake and alert. SKIN: Warm and dry. Small area of ecchymosis right anterior ankle. HEAD: Atraumatic. Normocephalic. No temporal or scalp tenderness. EYES: Pupils equal round and reactive. Extraocular motions intact. No scleral icterus. No injection or drainage. ENT: Nose without bleeding or purulent drainage. Throat without erythema, tonsillar hypertrophy or exudate. Uvula midline. Airway patent. NECK: Trachea midline. No JVD or lymphadenopathy. Supple, no meningeal signs, no neck stiffness. (+)tenderness over left SCM area. CARDIOVASCULAR: Regular rate and rhythm without murmurs, gallops, or rubs. RESPIRATORY: Clear to auscultation. Breath sounds equal bilaterally. No wheezes , rales, or rhonchi. GASTROINTESTINAL: Abdomen soft, non-tender, nondistended. No hepato-splenomegaly , or palpable masses. No guarding. MUSCULOSKELETAL: Extremities without clubbing, cyanosis, or edema. No joint tenderness, effusion, or edema noted. No calf tenderness. NEUROLOGICAL: Awake and alert. Cranial nerves II through XII grossly intact. Motor and sensory grossly within normal limits. No focal neurologic findings. Normal speech. PSYCHIATRIC: Appropriate mood and affect. Normal judgement and insight. Calm and cooperative. Laboratory Laboratory Tests Test 07/06/17 01:20 07/06/17 11:21 White Blood Count 14.0 Red Blood Count 5.02 Hemoglobin 15.8 Hematocrit 44.9 Mean Corpuscular Volume 89.5 Mean Corpuscular Hemoglobin 31.5 Mean Corpuscular Hemoglobin Concent 35.2 Red Cell Distribution Width 12.9 Platelet Count 195 Mean Platelet Volume 8.0 Neutrophils (%) (Auto) 75.4 Lymphocytes (%) (Auto) 18.2 Monocytes (%) (Auto) 5.8 Eosinophils (%) (Auto) 0.2 Basophils (%) (Auto) 0.4 Neutrophils # (Auto) 10.6 Lymphocytes # (Auto) 2.5 Monocytes # (Auto) 0.8 Eosinophils # (Auto) 0.0 Basophils # (Auto) 0.1 CBC Comment DIFF FINAL Differential Comment Prothrombin Time 10.6 Prothromb Time International Ratio 1.0 Activated Partial Thromboplast Time 26.6 Blood Urea Nitrogen 13 Creatinine 0.79 Random Glucose 111 Calcium Level 8.6 Sodium Level 139 Potassium Level 3.9 Chloride Level 108 Carbon Dioxide Level 22.9 Anion Gap 8 Estimat Glomerular Filtration Rate 117 Phenytoin (Dilantin) Level 2.8 CSF Volume (Tube 1) 2.0 CSF Supernatant Color (tube 1) CLEAR CSF Gross Blood (Tube 1) 0 CSF Volume (Tube 2) 2.2 CSF Supernatant Color (tube 2) CLEAR CSF Gross Blood (Tube 2) 0 CSF Volume (Tube 3) 2.3 CSF Supernatant Color (tube 3) CLEAR CSF Gross Blood (Tube 3) 0 CSF Volume (Tube 4) 2.9 CSF Supernatant Color (tube 4) CLEAR CSF Gross Blood (Tube 4) TRACE CSF WBC (Tube 4) 495 CSF RBC (Tube 4) 25 CSF Neutrophils 1 CSF Lymphocytes 92 CSF Monocytes 7 CSF Glucose 62 CSF Lactic Acid 2.8 CSF Total Protein 161.4 Date/Time Source Procedure Growth Status 07/06/17 04:10 Blood Peripheral Aerobic Blood Culture Pending Received 07/06/17 04:10 Blood Peripheral Anaerobic Blood Culture Pending Received 07/06/17 11:21 Cerebral Spinal Fluid Lumbar Puncture Acid Fast Stain Pending Received 07/06/17 11:21 Cerebral Spinal Fluid Lumbar Puncture Mycobacterial Culture Pending Received 07/06/17 01:20 Nasal Washing Influenza Types A,B Antigen (SAMREEN) - Final NEGATIVE FOR FLU A AND B ANTIGEN.... Complete (Tiffanie Gallardo) Result Diagram: 07/06/17 0120 07/06/17 0120 Imaging Last Impressions Lumbar Puncture Fluoroscopy 07/06/17 0000 Signed Impressions: Service Date/Time: Thursday, July 06, 2017 11:24 - CONCLUSION: Uncomplicated fluoroscopically guided lumbar puncture with pressures as above. Jonnathan Breen MD Head CT 07/06/17 0000 Signed Impressions: Service Date/Time: Thursday, July 06, 2017 01:36 - CONCLUSION: Normal examination for a patient of this age. No significant change has occurred. Giancarlo Buchanan MD Chest X-Ray 07/06/17 0000 Signed Impressions: Service Date/Time: Thursday, July 06, 2017 00:58 - CONCLUSION: No acute disease. Giancarlo Buchanan MD (Tiffanie Gallardo) Assessment and Plan Assessment and Plan Cephalgia with concern for possible meningitis Seizure disorder with subtherapeutic Dilantin level and possible breakthrough seizure activity Recent URI, resolved RECOMMENDATIONS: Continue with IV Acyclovir, Vancomycin and Ceftriaxone Add CSF studies for fungus and HSV HIV antibody screen ordered - discussed with patient who has given consent for HIV testing Hepatitis profile and RPR ordered Obtain urine drug screen MRI brain and EEG ordered follow up on final culture results follow up on Neurology assessment/recommendations Monitor clinically (Tiffanie Gallardo) Assessment and Plan The exam, history, and the medical decision-making described in the above note were completed with the assistance of the mid-level provider. I reviewed and agree with the findings presented. I attest that I had a [id number] encounter with the patient on the same day, and personally performed and documented my assessment and findings in the medical record. Complains of headache. h/o seizure disorder. On dilantin but misses doses. Last seizure 1 week back per pt. But no one lives with him. ? other seizures. Complains of left neck pain. Exam No neck stiffness Some photophobia Possible Meningoencephalitis Cephalgia Seizure disorder with low dilantin levels. Recs Continue Ceftriaxone q12 Continue Vanco IV (15-20 target trough) Continue Acyclovir HIV Hepatitis CSF fungus CSF HSV MRI Brain Neuro consult EEG follow cx (Myra Wheeler MD) Tiffanie Gallardo July 06, 2017 16:55 Myra Wheeler MD July 06, 2017 17:55
[2017-07-06] MEDS: cefTRIAXone INJ 2,000 MG in SODIUM CHLORIDE 0.9% INJ 100 ML IV SCH (17:05)
[2017-07-06] MEDS: ACETAMINOPHEN/HYDROcodone 325 MG/7.5 MG TAB PO PRN ×2 (17:06→23:41)
[2017-07-06] MEDS: PHENYTOIN SODIUM 100 MG CAP PO SCH ×2 (19:07→21:35)
--- NOTE | 2017-07-06 19:07 | RADRPT ---
EXAM DATE/TIME: 07/06/2017 18:18 [place] COMPARISON: No previous studies available for comparison. INDICATIONS : Abscess. Headaches for two days. CONTRAST: 20 cc Omniscan (gadodiamide) IV MEDICAL HISTORY : None. SURGICAL HISTORY : Tonsillectomy. Right elbow sx, Lumbar puncture. ENCOUNTER: Initial ACUITY: 2 day PAIN SCORE: 10/10 LOCATION: Bilateral cranial TECHNIQUE: Multiplanar, multisequence MRI of the brain was performed both prior to and following the administrat ion of paramagnetic contrast. FINDINGS: CEREBRUM: The ventricles are normal for age. No evidence of midline shift, mass lesion, hemorrhage or acute in farction. No extraaxial fluid collections are seen. The pituitary gland and suprasellar cistern are normal in configuration. WHITE MATTER: No significant signal abnormalities are seen in the white matter. POSTERIOR FOSSA: The cerebellum and brainstem are intact. The 4th ventricle is midline. The cerebellopontine angle is unremarkable. The cerebellar tonsils are normal in position. DIFFUSION IMAGING: No focal areas of restricted diffusion are seen. No evidence of acute infarction. EXTRACRANIAL: Minimal polypoid mucosal disease in the maxillary sinuses. Orbits are symmetric and unremarkable. POST-CONTRAST: No abnormal areas of parenchymal or dural enhancement. No evidence of blood-brain barrier breakdown. CONCLUSION: No acute intracranial findings Tanvir Gracia MD on July 06, 2017 at 18:58 Board Certified Radiologist. This report was verified electronically.
--- NOTE | 2017-07-06 19:29 | RADRPT ---
EXAM DATE/TIME: 07/06/2017 18:18 COMPARISON: No previous studies available for comparison. INDICATIONS : Occlusion. CONTRAST: 20 cc Omniscan (gadodiamide) IV MEDICAL HISTORY : None. SURGICAL HISTORY : Tonsillectomy. Right elbow sx. ENCOUNTER: Initial ACUITY: 2 day PAIN SCORE: 10/10 LOCATION: Bilateral cranial FINDINGS: P. the neural venous sinuses are symmetric patent and unremarkable. The deep cerebral venous structur es and major cortical surface veins are symmetric and unremarkable. CONCLUSION: Normal exam Tanvir Gracia MD on July 06, 2017 at 19:25 Board Certified Radiologist. This report was verified electronically.
[2017-07-06 20:22] LABS: ALBUMIN 3.7 GM/DL (3.4-5.0); DIRECT BILIRUBIN ADULT 0.1 MG/DL (0.0-0.2)
[2017-07-06 20:24] LABS: INDIRECT BILIRUBIN 0.3 MG/DL (0.0-0.8); TOTAL BILIRUBIN ADULT 0.4 MG/DL (0.2-1.0); TOTAL PROTEIN 6.6 GM/DL (6.4-8.2)
[2017-07-06 20:39] VITALS: BP 129/77; PULSE 77; RESP 18; TEMP 98.8; O2SAT 97
[2017-07-06] MEDS: VANCOMYCIN INJ 2,500 MG in SODIUM CHLORID 0.9% 500 ML INJ 500 ML IV SCH (21:34)
[2017-07-06 23:57] VITALS: BP 130/75; PULSE 79; RESP 18; TEMP 98.8; O2SAT 96
[2017-07-07] MEDS: ACETAMIN 325 MG/BUTALBITAL 50 MG/CAFFEINE 40 MG TAB PO PRN ×3 (03:52→17:52)
[2017-07-07] MEDS: ACYCLOVIR INJ 1,050 MG in SODIUM CHLORIDE 0.9% INJ 150 ML IV SCH ×3 (03:52→20:49)
[2017-07-07 04:29] VITALS: BP 137/81; PULSE 81; RESP 18; TEMP 98.3; O2SAT 97
[2017-07-07] MEDS: cefTRIAXone INJ 2,000 MG in SODIUM CHLORIDE 0.9% INJ 100 ML IV SCH ×2 (05:46→17:52)
[2017-07-07] MEDS: PHENYTOIN SODIUM 100 MG CAP PO SCH ×6 (05:49→22:00)
[2017-07-07] MEDS: ACETAMINOPHEN/HYDROcodone 325 MG/7.5 MG TAB PO PRN ×3 (05:49→20:55)
[2017-07-07 07:03] LABS: AUTOMATED NEUTROPHIL # 3.9 TH/MM3 (1.8-7.7); BASOPHIL % 0.5 % (0.0-2.0); EOSINOPHIL # 0.1 TH/MM3 (0-0.4); EOSINOPHIL % 1.1 % (0.0-4.0); HEMATOCRIT 40.8 % (39.0-51.0); HEMOGLOBIN 14.3 GM/DL (13.0-17.0); LYMPH % 35.5 % (9.0-44.0); LYMPHOCYTE # 2.7 TH/MM3 (1.0-4.8); MEAN CORPUSCULAR HEMOGLOBIN 31.3 PG (27.0-34.0); MEAN CORPUSCULAR HGB CONC 35.1 % (32.0-36.0); MEAN PLATELET VOLUME 7.6 FL (7.0-11.0); MONO % 11.3 % (0.0-8.0); MONOCYTE # 0.9 TH/MM3 (0-0.9); NEUT % 51.6 % (16.0-70.0); PLATELET COUNT 167 TH/MM3 (150-450); RED BLOOD COUNT 4.58 MIL/MM3 (4.50-5.90); RED CELL DISTRIBUTION WIDTH 12.8 % (11.6-17.2); WHITE BLOOD COUNT 7.7 TH/MM3 (4.0-11.0)
[2017-07-07 07:30] LABS: BICARBONATE 26.5 MEQ/L (21.0-32.0); CALCIUM 8.2 MG/DL (8.5-10.1); CREATININE 0.6 MG/DL (0.60-1.30)
[2017-07-07 07:45] VITALS: BP 138/69; PULSE 81; RESP 18; TEMP 97.9; O2SAT 96
[2017-07-07] MEDS: DOCUSATE SODIUM 50 MG/SENNA 8.6 MG TAB PO SCH ×2 (09:00→20:47)
[2017-07-07] MEDS: VANCOMYCIN INJ 2,500 MG in SODIUM CHLORID 0.9% 500 ML INJ 500 ML IV SCH (09:14)
[2017-07-07] MEDS ORDERED: PHENYTOIN SODIUM 100 MG CAP PO ONE (09:15)
[2017-07-07] MEDS: SODIUM CHLORIDE 0.9% FLUSH 10 ML FLUSH IV FLUSH SCH ×2 (09:16→20:47)
--- NOTE | 2017-07-07 09:47 | HHI.PR ---
Subjective Remarks Follow-up for meningitis, headache. Patient reports feeling slightly better this morning. Still reporting headache, worse at left frontal region today, associated with mild photophobia. Denies any nausea or vomiting. Denies any fevers or chills overnight. Reports his neck feeling sore today, but improved compared to yesterday. Objective Vitals Vital Signs Date Time Temp Pulse Resp B/P (MAP) Pulse Ox O2 Delivery O2 Flow Rate FiO2 07/07/17 07:45 97.9 81 18 138/69 (92) 96 07/07/17 04:29 98.3 81 18 137/81 (99) 97 07/06/17 23:57 98.8 79 18 130/75 (93) 96 07/06/17 20:39 98.8 77 18 129/77 (94) 97 07/06/17 16:00 98.3 93 20 146/91 (109) 97 07/06/17 12:00 97.8 80 20 141/76 (97) 99 I/O 07/06/17 07/06/17 07/06/17 07/07/17 07/07/17 07/07/17 07:00 15:00 23:00 07:00 15:00 23:00 Intake Total 240 ml 1200 ml Balance 240 ml 1200 ml Intake Oral 240 ml 1200 ml # Voids 1 6 Result Diagram: 07/07/17 0647 07/07/17 0647 Imaging Last Impressions Lumbar Puncture Fluoroscopy 07/06/17 0000 Signed Impressions: Service Date/Time: Thursday, July 06, 2017 11:24 - CONCLUSION: Uncomplicated fluoroscopically guided lumbar puncture with pressures as above. Jonnathan Breen MD Head/Brain Mag Res Venography 07/06/17 0000 Signed Impressions: Service Date/Time: Thursday, July 06, 2017 18:18 - CONCLUSION: Normal exam Tanvir Gracia MD Head CT 07/06/17 0000 Signed Impressions: Service Date/Time: Thursday, July 06, 2017 01:36 - CONCLUSION: Normal examination for a patient of this age. No significant change has occurred. Giancarlo Buchanan MD Chest X-Ray 07/06/17 0000 Signed Impressions: Service Date/Time: Thursday, July 06, 2017 00:58 - CONCLUSION: No acute disease. Giancarlo Buchanan MD Brain MRI 07/06/17 0000 Signed Impressions: Service Date/Time: Thursday, July 06, 2017 18:18 - CONCLUSION: No acute intracranial findings Tanvir Gracia MD Objective Remarks GENERAL: Well-nourished, well-developed young male patient in [facility]. SKIN: Warm and dry. No rash. HEENT: Normocephalic. Atraumatic. Pupils equal and round. Mucous membranes pink and moist. NECK: Supple. Trachea midline. Patient able to touch chin to chest without difficulty, although induces neck pain. Negative Brudzinski's. Cervical paraspinous muscles diffusely tender to palpation. CARDIOVASCULAR: Regular rate and rhythm. No murmur appreciated. RESPIRATORY: No accessory muscle use. Clear to auscultation. Breath sounds equal bilaterally. GASTROINTESTINAL: Abdomen soft, non-tender, nondistended. Normoactive bowel sounds x4. MUSCULOSKELETAL: No obvious deformities. Extremities without clubbing, cyanosis , or edema. NEUROLOGICAL: Awake and alert. No obvious cranial nerve deficits. Motor grossly within normal limits. Moving all extremities spontaneously. Normal speech. PSYCHIATRIC: Appropriate mood and affect; insight and judgment normal. Procedures 07/06/17 - Lumbar puncture done by IR Medications and IVs Current Medications Medications (Trade) Dose Ordered Sig/Arely Route Start Time Stop Time Status Last Admin Acyclovir Sodium 1050 mg/Sodium Chloride 150 ml @ 150 mls/hr Q8H IV 07/06/17 12:00 07/07/17 03:52 Pharmacy Profile Note 0 ml @ 0 mls/hr UNSCH OTHER 07/06/17 04:30 Ceftriaxone Sodium 2000 mg/ Sodium Chloride 100 ml @ 200 mls/hr Q12H IV 07/06/17 16:00 07/07/17 05:46 (NS Flush) 2 ml UNSCH PRN IV FLUSH 07/06/17 04:30 (NS Flush) 2 ml BID IV FLUSH 07/06/17 09:00 07/07/17 09:16 (Tylenol) 650 mg Q4H PRN PO 07/06/17 04:30 (Zofran Odt) 4 mg Q6H PRN PO 07/06/17 04:30 (Narcan Inj) 0.4 mg UNSCH PRN IV PUSH 07/06/17 04:30 (Linda-Colace) 1 tab BID PO 07/06/17 09:00 07/06/17 21:35 (Milk Of Magnesia Liq) 30 ml Q12H PRN PO 07/06/17 04:30 (Senokot) 17.2 mg Q12H PRN PO 07/06/17 04:30 (Dulcolax Supp) 10 mg DAILY PRN RECTAL 07/06/17 04:30 (Lactulose Liq) 30 ml DAILY PRN PO 07/06/17 04:30 (Fioricet 325-50-40) 1 tab Q6H PRN PO 07/06/17 09:45 07/07/17 09:15 ([facility] Ordered Lab Info) SPECIFIC LAB TO BE ... ONCE ONCE .XX 07/08/17 08:45 07/08/17 08:46 (Dilantin) 100 mg 5 TIMES A DAY PO 07/06/17 18:00 07/07/17 09:15 ([place] 7.5-325 Mg) 1 tab Q6H PRN PO 07/06/17 16:15 07/07/17 05:49 Vancomycin HCl 2500 mg/Sodium Chloride 525 ml @ 250 mls/hr Q12H IV 07/06/17 21:00 07/07/17 09:14 (Dilantin) 100 mg Q8H PO 07/07/17 17:00 A/P Problem List: (1) Cephalalgia ICD Code: R51 - Headache (2) History of seizure ICD Code: Z87.898 - Personal history of other specified conditions Status: Chronic Assessment and Plan 26-year-old male with history of seizures presents with headache and neck pain Sepsis with acute meningitis, Cephalgia: Patient with persistent headache and neck pain. Patient with recent URI, now resolved. Patient met sepsis criteria upon arrival with WBC 14 K, tachycardia heart rate 99, suspected source- meningitis. -Lumbar puncture done 07/06, shows WBCs 495 and elevated protein 161. -CSF Gram stain with many WBCs, no AFBs, Culture with no growth x1day -Blood cultures with NGTD -HIV and hepatitis panel negative, awaiting HSV panel and RPR -Continue prophylactic antibiotics/antivirals with IV acyclovir, IV Rocephin , IV vancomycin with pharmacy consult -ID consulted, appreciate recommendations -Neurology consulted, appreciate recommendations Seizure disorder: Chronic -Dilantin level subtherapeutic at 2.8 -Continue patient's Dilantin 100 mg 5 times a day -Neurology consulted -Check EEG -Repeat Dilantin level tomorrow am Tobacco Abuse: chronic -extension course counselor on cessation Epigastric Pain: patient reports intermittent epigastric pain when taking dilantin, ID recommending GI evaluation with EGD since dilantin level low and question malabsorption of medication -consult GI, discussed with Dr. Wright, plan for EGD DVT Prophylaxis: teds/SCDs; avoid chemoprophylaxis with recent LP Veronica Cerrato PA-C July 07, 2017 09:47
[2017-07-07 10:14] LABS: RPR SCREEN FOR REFLEX NON-REACTIVE (NON-REACTVE)
--- NOTE | 2017-07-07 10:34 | HHI.IDPN ---
Subjective Subjective Remarks Patient seen and examined on behalf of Dr. Wheeler This is a 26-year-old male with a history of seizure disorder on Dilantin who presented to [facility] ED with complaints of severe frontal headache and neck pain x 2 days. Patient reports associated photophobia and nausea but no emesis. He denies any associated fever or chills. He denies any vision changes. He denies any ear pain/drainage/ringing. He denies any nasal drainage or sinus problems. Patient states he had a upper respiratory infection last week and completed 5 days of Amoxicillin. Patient states he responded well to the treatment and felt good except for lingering cough with whitish/brown sputum production. Patient reports his last "mini seizure" was last week. He is prescribed Dilantin which he is to take 200mg in am, 100mg in afternoon and 200mg at night. Due to heartburn associated with taking the medication, he takes 100mg 5 times a day and admits to occasionally missing doses. He has a history of concussion last December. He reports occasional cold sores the last one being a month ago but denies any genital involvement. He denies any previous history of meningitis. He denies any recent travel or tick bites. He denies any known sick contacts. Patient underwent a lumbar puncture with initial CSF culture showing many WBCs and no organisms. CSF fluid with 495 WBCs and elevated total protein of 161.4. Patient is afebrile. His CBC was significant for leukocytosis with white count of 14, neutrophil % 75.4 and neutrophil count 10.6. Chemistry panel was essentially unremarkable. His Phenytoin level is low at 2.8. Infectious disease consulted for evaluation and management of possible meningitis. Notes reviewed Patient reports persistent headache and photophobia a little better this morning after he first woke up but gradually increasing in intensity + mild back ache where LP performed denies any seizure activity but reports EEG study "was horrible" and he felt like it was going to cause him to have a seizure no fever or chills no rash no N/V no diarrhea afebrile White count trending down, from 14 to 7.7 HIV and Hepatitis profile negative RPR and HSV pending CSF studies pending CSF CX with no growth x 24hrs MRI and MRV negative Antibiotics IV Vancomycin IV Ceftriaxone IV Acyclovir Lines PIV with no e/o infection Past Medical History Seizure disorder (Paulina,Tiffanie PA) Allergies: Coded Allergies: No Known Allergies (Unverified Adverse Reaction, Unknown, 07/05/17) Objective . Vital Signs Date Time Temp Pulse Resp B/P (MAP) Pulse Ox O2 Delivery O2 Flow Rate FiO2 07/07/17 07:45 97.9 81 18 138/69 (92) 96 07/07/17 04:29 98.3 81 18 137/81 (99) 97 07/06/17 23:57 98.8 79 18 130/75 (93) 96 07/06/17 20:39 98.8 77 18 129/77 (94) 97 07/06/17 16:00 98.3 93 20 146/91 (109) 97 07/06/17 12:00 97.8 80 20 141/76 (97) 99 . Laboratory Tests Test 07/06/17 01:20 07/07/17 06:47 White Blood Count 14.0 TH/MM3 7.7 TH/MM3 Red Blood Count 5.02 MIL/MM3 4.58 MIL/MM3 Hemoglobin 15.8 GM/DL 14.3 GM/DL Hematocrit 44.9 % 40.8 % Mean Corpuscular Volume 89.5 FL 89.0 FL Mean Corpuscular Hemoglobin 31.5 PG 31.3 PG Mean Corpuscular Hemoglobin Concent 35.2 % 35.1 % Red Cell Distribution Width 12.9 % 12.8 % Platelet Count 195 TH/MM3 167 TH/MM3 Mean Platelet Volume 8.0 FL 7.6 FL Neutrophils (%) (Auto) 75.4 % 51.6 % Lymphocytes (%) (Auto) 18.2 % 35.5 % Monocytes (%) (Auto) 5.8 % 11.3 % Eosinophils (%) (Auto) 0.2 % 1.1 % Basophils (%) (Auto) 0.4 % 0.5 % Neutrophils # (Auto) 10.6 TH/MM3 3.9 TH/MM3 Lymphocytes # (Auto) 2.5 TH/MM3 2.7 TH/MM3 Monocytes # (Auto) 0.8 TH/MM3 0.9 TH/MM3 Eosinophils # (Auto) 0.0 TH/MM3 0.1 TH/MM3 Basophils # (Auto) 0.1 TH/MM3 0.0 TH/MM3 CBC Comment DIFF FINAL DIFF FINAL Differential Comment Laboratory Tests Test 07/06/17 01:20 07/06/17 19:35 07/07/17 06:47 Blood Urea Nitrogen 13 MG/DL 8 MG/DL Creatinine 0.79 MG/DL 0.60 MG/DL Random Glucose 111 MG/DL 107 MG/DL Calcium Level 8.6 MG/DL 8.2 MG/DL Sodium Level 139 MEQ/L 143 MEQ/L Potassium Level 3.9 MEQ/L 3.8 MEQ/L Chloride Level 108 MEQ/L 109 MEQ/L Carbon Dioxide Level 22.9 MEQ/L 26.5 MEQ/L Anion Gap 8 MEQ/L 8 MEQ/L Estimat Glomerular Filtration Rate 117 ML/MIN 160 ML/MIN Total Bilirubin 0.4 MG/DL Direct Bilirubin 0.1 MG/DL Indirect Bilirubin 0.3 MG/DL Aspartate Amino Transf (AST/SGOT) 14 U/L Alanine Aminotransferase (ALT/SGPT) 25 U/L Alkaline Phosphatase 80 U/L Total Protein 6.6 GM/DL Albumin 3.7 GM/DL Microbiology Date/Time Source Procedure Growth Status 07/06/17 04:10 Blood Peripheral Aerobic Blood Culture Pending Received 07/06/17 04:10 Blood Peripheral Anaerobic Blood Culture Pending Received 07/06/17 04:00 Blood Peripheral Aerobic Blood Culture Pending Received 07/06/17 04:00 Blood Peripheral Anaerobic Blood Culture Pending Received 07/06/17 11:21 Cerebral Spinal Fluid Lumbar Puncture Fungal Smear Pending Received 07/06/17 11:21 Cerebral Spinal Fluid Lumbar Puncture Fungal Culture Pending Received 07/06/17 11:21 Cerebral Spinal Fluid Lumbar Puncture Acid Fast Stain - Final NO ACID FAST BACILLI SEEN Resulted 07/06/17 11:21 Cerebral Spinal Fluid Lumbar Puncture Mycobacterial Culture Pending Resulted 07/06/17 11:21 Cerebral Spinal Fluid Lumbar Puncture Gram Stain - Final Resulted 07/06/17 11:21 Cerebral Spinal Fluid Lumbar Puncture CSF Culture - Preliminary NO GROWTH IN 24 HOURS. Resulted 07/06/17 01:20 Nasal Washing Influenza Types A,B Antigen (SAMREEN) - Final NEGATIVE FOR FLU A AND B ANTIGEN.... Complete Imaging Last Impressions Lumbar Puncture Fluoroscopy 07/06/17 0000 Signed Impressions: Service Date/Time: Thursday, July 06, 2017 11:24 - CONCLUSION: Uncomplicated fluoroscopically guided lumbar puncture with pressures as above. Jonnathan Breen MD Head/Brain Mag Res Venography 07/06/17 0000 Signed Impressions: Service Date/Time: Thursday, July 06, 2017 18:18 - CONCLUSION: Normal exam Tanvir Gracia MD Head CT 07/06/17 Signed Impressions: Service Date/Time: Thursday, July 06, 2017 01:36 - CONCLUSION: Normal examination for a patient of this age. No significant change has occurred. Giancarlo Buchanan MD Chest X-Ray 07/06/17 Signed Impressions: Service Date/Time: Thursday, July 06, 2017 00:58 - CONCLUSION: No acute disease. Giancarlo Buchanan MD Brain MRI 07/06/17 Signed Impressions: Service Date/Time: Thursday, July 06, 2017 18:18 - CONCLUSION: No acute intracranial findings Tanvir Gracia MD Physical Exam GENERAL: This is a well-nourished, well-developed male patient, in no apparent distress. Awake and alert. Sitting in the dark. Mother is at the bedside. SKIN: Warm and dry. Small area of ecchymosis right anterior ankle. HEAD: Atraumatic. Normocephalic. No temporal or scalp tenderness. EYES: Pupils equal round and reactive. Extraocular motions intact. No scleral icterus. No injection or drainage. ENT: Nose without bleeding or purulent drainage. Throat without erythema, tonsillar hypertrophy or exudate. Uvula midline. Airway patent. NECK: Trachea midline. No lymphadenopathy. Supple, no meningeal signs, no neck stiffness. (+)tenderness over left SCM area. CARDIOVASCULAR: Regular rate and rhythm without murmurs, gallops, or rubs. RESPIRATORY: Clear to auscultation. Breath sounds equal bilaterally. No wheezes , rales, or rhonchi. GASTROINTESTINAL: Abdomen soft, non-tender, nondistended. No guarding. MUSCULOSKELETAL: Extremities without clubbing, cyanosis, or edema. No joint tenderness, effusion, or edema noted. No calf tenderness. NEUROLOGICAL: Awake and alert. Cranial nerves II through XII grossly intact. Motor and sensory grossly within normal limits. No focal neurologic findings. Normal speech. PSYCHIATRIC: Appropriate mood and affect. Normal judgement and insight. Calm and cooperative. PIV with no e/o infection (Tiffanie Gallardo) Assessment & Plan Remarks Cephalgia -persistent headache after LP. Patient reports being stuck 4x for LP. ?leak , post LP headache Possible meningoencephalitis Seizure disorder with subtherapeutic Dilantin level and possible breakthrough seizure activity Recent URI, resolved RECOMMENDATIONS: Continue with IV Acyclovir and Ceftriaxone Discontinue IV Vanco Follow up on CSF cultures and studies until finalized HIV and Hepatitis negative, RPR pending MRI and MRV negative. EEG pending follow up on Neurology assessment/recommendations Monitor clinically Further recommendations to follow (Tiffanie Gallardo) Remarks The exam, history, and the medical decision-making described in the above note were completed with the assistance of the mid-level provider. I reviewed and agree with the findings presented. I attest that I had a [id number] encounter with the patient on the same day, and personally performed and documented my assessment and findings in the medical record. Still c/o headache. c/o nausea with Dilantin. Continue Ceftriaxone IV DC Vanco IV Continue Acyclovir. Follow EEG Dilantin level low. MRI and MRV no e/o infection Consider GI consult if persistent GI issues with Dilantin as it can affect compliance. (Myra Wheeler MD) Tiffanie Gallardo July 07, 2017 10:34 Myra Wheeler MD July 07, 2017 14:05
--- NOTE | 2017-07-07 13:01 | PD.CONS ---
HPI History of Present Illness This is a 26 year old M with PMH significant for seizure disorder who presented to the ER yesterday with complaints of headache, S/P lumbar puncture, he is currently being treated for viral meningitis. Our service has been consulted to evaluate pt for possible EGD. Pt reports some epigastric pain and heartburn, related it to his Dilantin. States has had to spread his Dilantin pills out throughout the day instead of taking the proper dose three times a day as prescribed because he states this helps him better tolerate the medicine. Does occasionally have to skip doses due to symptoms. Reports of nausea when he came in but state that was secondary to his headache, denies nausea otherwise. Has not had any emesis. States BMs are generally normal at home, has not had a BM since being here. Denies ETOH. Smokes 1 PPD of cigarettes and also admits to occasional marijuana use. Denies any other illicit drug use. Also reports taking Ibuprofen every other day for headaches and states it does seem to help with his epigastric pain. Denies any significant family history of GI issues. Has never had EGD or colonoscopy. (Karolyn Jefferson) PFSH Past Medical History Seizure disorder Obstructive sleep apnea Headache Past Surgical History Tonsillectomy Right arm surgery (Karolyn Jefferson) Coded Allergies: No Known Allergies (Unverified Adverse Reaction, Unknown, 07/05/17) Family History One aunt with migraine headache Social History Alcohol Use: Yes ("TWICE A YEAR") Tobacco Use: Yes (1 ppd) Substance Use: Yes (marijuana OCCASIONALLY) (Karolyn Jefferson) Review of Systems Gastrointestinal: COMPLAINS OF: Abdominal pain, Nausea, Heartburn, DENIES: Black stools, Bloody stools, Constipation, Diarrhea, Vomiting, Difficulty Swallowing, Odynophagia, Swelling of Abdomen, Hematemesis (Karolyn Jefferson) GI Exam Vitals I&O Vital Signs Date Time Temp Pulse Resp B/P (MAP) Pulse Ox O2 Delivery O2 Flow Rate FiO2 07/07/17 10:32 18 07/07/17 07:45 97.9 81 18 138/69 (92) 96 07/07/17 04:29 98.3 81 18 137/81 (99) 97 07/06/17 23:57 98.8 79 18 130/75 (93) 96 07/06/17 20:39 98.8 77 18 129/77 (94) 97 07/06/17 16:00 98.3 93 20 146/91 (109) 97 I/O 07/06/17 07/06/17 07/06/17 07/07/17 07/07/17 07/07/17 07:00 15:00 23:00 07:00 15:00 23:00 Intake Total 240 ml 1200 ml Balance 240 ml 1200 ml Intake Oral 240 ml 1200 ml # Voids 1 6 Imaging Last Impressions Lumbar Puncture Fluoroscopy 07/06/17 0000 Signed Impressions: Service Date/Time: Thursday, July 06, 2017 11:24 - CONCLUSION: Uncomplicated fluoroscopically guided lumbar puncture with pressures as above. Jonnathan Breen MD Head/Brain Mag Res Venography 07/06/17 0000 Signed Impressions: Service Date/Time: Thursday, July 06, 2017 18:18 - CONCLUSION: Normal exam Tanvir Gracia MD Head CT 07/06/17 0000 Signed Impressions: Service Date/Time: Thursday, July 06, 2017 01:36 - CONCLUSION: Normal examination for a patient of this age. No significant change has occurred. Giancarlo Buchanan MD Chest X-Ray 07/06/17 0000 Signed Impressions: Service Date/Time: Thursday, July 06, 2017 00:58 - CONCLUSION: No acute disease. Giancarlo Buchanan MD Brain MRI 07/06/17 0000 Signed Impressions: Service Date/Time: Thursday, July 06, 2017 18:18 - CONCLUSION: No acute intracranial findings Tanvir Gracia MD Laboratory Test 07/06/17 19:35 07/07/17 06:47 Total Bilirubin 0.4 MG/DL Direct Bilirubin 0.1 MG/DL Indirect Bilirubin 0.3 MG/DL Aspartate Amino Transf (AST/SGOT) 14 U/L Alanine Aminotransferase (ALT/SGPT) 25 U/L Alkaline Phosphatase 80 U/L Total Protein 6.6 GM/DL Albumin 3.7 GM/DL Rapid Plasma Reagin NON-REACTIVE Hepatitis A IgM Antibody NONREACTIVE Hepatitis B Surface Antigen NONREACTIVE Hepatitis B Core IgM Antibody NONREACTIVE Hepatitis C IgG Antibody NONREACTIVE HIV (1&2) Ab and P24 Ag, 4th Gener NONREACTIVE White Blood Count 7.7 TH/MM3 Red Blood Count 4.58 MIL/MM3 Hemoglobin 14.3 GM/DL Hematocrit 40.8 % Mean Corpuscular Volume 89.0 FL Mean Corpuscular Hemoglobin 31.3 PG Mean Corpuscular Hemoglobin Concent 35.1 % Red Cell Distribution Width 12.8 % Platelet Count 167 TH/MM3 Mean Platelet Volume 7.6 FL Neutrophils (%) (Auto) 51.6 % Lymphocytes (%) (Auto) 35.5 % Monocytes (%) (Auto) 11.3 % Eosinophils (%) (Auto) 1.1 % Basophils (%) (Auto) 0.5 % Neutrophils # (Auto) 3.9 TH/MM3 Lymphocytes # (Auto) 2.7 TH/MM3 Monocytes # (Auto) 0.9 TH/MM3 Eosinophils # (Auto) 0.1 TH/MM3 Basophils # (Auto) 0.0 TH/MM3 CBC Comment DIFF FINAL Differential Comment Blood Urea Nitrogen 8 MG/DL Creatinine 0.60 MG/DL Random Glucose 107 MG/DL Calcium Level 8.2 MG/DL Sodium Level 143 MEQ/L Potassium Level 3.8 MEQ/L Chloride Level 109 MEQ/L Carbon Dioxide Level 26.5 MEQ/L Anion Gap 8 MEQ/L Estimat Glomerular Filtration Rate 160 ML/MIN Date/Time Source Procedure Growth Status 07/06/17 04:10 Blood Peripheral Aerobic Blood Culture - Preliminary NO GROWTH IN 1 DAY Resulted 07/06/17 04:10 Blood Peripheral Anaerobic Blood Culture - Preliminary NO GROWTH IN 1 DAY Resulted 07/06/17 11:21 Cerebral Spinal Fluid Lumbar Puncture Fungal Smear - Final NO FUNGAL ELEMENTS SEEN. Resulted 07/06/17 11:21 Cerebral Spinal Fluid Lumbar Puncture Fungal Culture Pending Resulted 07/06/17 01:20 Nasal Washing Influenza Types A,B Antigen (SAMREEN) - Final NEGATIVE FOR FLU A AND B ANTIGEN.... Complete Physical Examination HEENT: Normocephalic; atraumatic CHEST: Even/unlabored CARDIAC: RRR ABDOMEN: Soft, nondistended, nontender; bowel sounds active EXTREMITIES: No clubbing, cyanosis, or edema. SKIN: Normal; no rash; no jaundice. BALLAST INSPECTOR: No focal deficits; alert and oriented times three. (Karolyn Jefferson) Assessment and Plan Plan Assessment: - Epigastric pain/heartburn Pt states symptoms only related to Dilantin use. Symptoms are so severe when he takes the Dilantin that he has spread his doses out throughout the day instead of taking it as prescribed TID. Also has been taking Ibuprofen to help with frequent headaches and abdominal pain. Denies any changes in bowel movements, melena. Has never had EGD or colonoscopy. Denies ETOH Smoke 1 PPD cigarettes also admits to occasional marijuana use - Nausea- states only when he had headaches, denies emesis - Viral meningitis- neurology and ID following - Seizure disorder- on Dilantin- subtherapeutic level Plan: EGD tomorrow Obtain consent NPO after MN Pepcid Antiemetics PRN Supportive care Further recommendations based on findings of above Pt has been seen and examined by myself and Dr. Wright and this note is written on her behalf (Karolyn Jefferson) Physician Comments seen, examined agree with above celiac panel vit d, vit b12 ,iron, ferritin (Sydnie Wright MD) Karolyn Jefferson July 07, 2017 13:01 Sydnie Wright MD July 07, 2017 16:44
[2017-07-07 16:00] VITALS: BP 130/72; PULSE 83; RESP 18; TEMP 98.5; O2SAT 97
--- NOTE | 2017-07-07 18:46 | MG ---
cc: Chapin Baptiste MD DATE OF STUDY: 07/07/2017 EEG RECORD NUMBER: [id number] INDICATION FOR EEG: History of headache, seizures. DESCRIPTION OF RECORD: Frequent eye movement artifact, 5-20 microvolts low-amplitude theta alpha activity. Occasional myogenic artifact occurring off and on in the frontal regions. Single lead EKG showing sinus rhythm. Limited driving with photic stimulation. INTERPRETATION: Normal awake, drowsy appearing electroencephalogram, low amplitude. No epileptic activity. Clinical correlation. Chapin Baptiste MD MG/SAROJ , 06:28 PM , 06:46 PM
[2017-07-07 20:00] VITALS: BP 130/60; PULSE 80; RESP 18; TEMP 98.1; O2SAT 97
[2017-07-07] MEDS: FAMOTIDINE 20 MG TAB PO SCH (20:47)
[2017-07-07 22:08] LABS: IRON (FE) 37 MCG/DL (65-175)
[2017-07-07 22:33] LABS: % SATURATION IRON PROFILE 16.9 % (20-50); FERRITIN 111 NG/ML (26-388); TOTAL IRON BINDING CAPACITY 218 MCG/DL (250-450)
[2017-07-08] VITALS: BP 138/80; PULSE 80; RESP 18; TEMP 98.6; O2SAT 98
[2017-07-08] MEDS: PHENYTOIN SODIUM 100 MG CAP PO SCH ×2 (00:16→10:04)
[2017-07-08] MEDS: ACETAMIN 325 MG/BUTALBITAL 50 MG/CAFFEINE 40 MG TAB PO PRN ×4 (00:17→17:55)
[2017-07-08 04:00] VITALS: BP 139/88; PULSE 82; RESP 18; TEMP 97.8; O2SAT 98
[2017-07-08] MEDS: cefTRIAXone INJ 2,000 MG in SODIUM CHLORIDE 0.9% INJ 100 ML IV SCH (04:39)
[2017-07-08] MEDS: ACYCLOVIR INJ 1,050 MG in SODIUM CHLORIDE 0.9% INJ 150 ML IV SCH ×3 (04:39→21:51)
[2017-07-08] MEDS: ACETAMINOPHEN/HYDROcodone 325 MG/7.5 MG TAB PO PRN ×3 (04:42→19:01)
[2017-07-08] MEDS ORDERED: CHLORHEXIDINE GLUCONATE 2 % 1 PACK (2 CLOTHS) TOPICAL PRN (06:00)
[2017-07-08] MEDS ORDERED: LACTATED RINGER'S 1000 ML IV PRN (06:00)
[2017-07-08] MEDS ORDERED: POVIDONE IODINE 5% (ANTISEPSIS KIT) 4 APPLICATIONS EACH NARE PRN (06:00)
[2017-07-08] MEDS ORDERED: SODIUM CHLORID 0.9% 500 ML IV PRN (06:00)
[2017-07-08 08:00] VITALS: BP 150/74; PULSE 91; RESP 18; TEMP 98.1; O2SAT 98
[2017-07-08] MEDS ORDERED: PHARMACY ORDERED LAB ONE (08:45)
--- NOTE | 2017-07-08 09:44 | HHI.IDPN ---
Subjective Subjective Remarks Patient seen and examined on behalf of Dr. Wheeler This is a 26-year-old male with a history of seizure disorder on Dilantin who presented to [facility] ED with complaints of severe frontal headache and neck pain x 2 days. Patient reports associated photophobia and nausea but no emesis. He denies any associated fever or chills. He denies any vision changes. He denies any ear pain/drainage/ringing. He denies any nasal drainage or sinus problems. Patient states he had a upper respiratory infection last week and completed 5 days of Amoxicillin. Patient states he responded well to the treatment and felt good except for lingering cough with whitish/brown sputum production. Patient reports his last "mini seizure" was last week. He is prescribed Dilantin which he is to take 200mg in am, 100mg in afternoon and 200mg at night. Due to heartburn associated with taking the medication, he takes 100mg 5 times a day and admits to occasionally missing doses. He has a history of concussion last December. He reports occasional cold sores the last one being a month ago but denies any genital involvement. He denies any previous history of meningitis. He denies any recent travel or tick bites. He denies any known sick contacts. Patient underwent a lumbar puncture with initial CSF culture showing many WBCs and no organisms. CSF fluid with 495 WBCs and elevated total protein of 161.4. Patient is afebrile. His CBC was significant for leukocytosis with white count of 14, neutrophil % 75.4 and neutrophil count 10.6. Chemistry panel was essentially unremarkable. His Phenytoin level is low at 2.8. Infectious disease consulted for evaluation and management of possible meningitis. Notes reviewed Patient reports persistent headache and photophobia, worse with sitting up headache best after he first wakes up and increases after he has been up + mild back ache where LP performed NPO for EGD today at 1pm no fever or chills no rash no N/V no diarrhea afebrile White count trending down, from 14 to 7.7 HIV, RPR and Hepatitis profile negative HSV pending CSF studies pending CSF CX with no growth x 24hrs MRI and MRV negative EEG with no seizure activity UDS + for barbiturates and cannabis Antibiotics IV Ceftriaxone IV Acyclovir Lines PIV with no e/o infection Past Medical History Seizure disorder (Tiffanie Gallardo) Allergies: Coded Allergies: No Known Allergies (Unverified Adverse Reaction, Unknown, 07/05/17) Objective . Vital Signs Date Time Temp Pulse Resp B/P (MAP) Pulse Ox O2 Delivery O2 Flow Rate FiO2 07/08/17 08:00 98.1 91 18 150/74 (99) 98 07/08/17 04:00 97.8 82 18 139/88 (105) 98 07/08/17 00:00 98.6 80 18 138/80 (99) 98 07/07/17 20:00 98.1 80 18 130/60 (83) 97 07/07/17 16:00 98.5 83 18 130/72 (91) 97 07/07/17 13:18 20 07/07/17 10:32 18 . Laboratory Tests Test 07/07/17 06:47 White Blood Count 7.7 TH/MM3 Red Blood Count 4.58 MIL/MM3 Hemoglobin 14.3 GM/DL Hematocrit 40.8 % Mean Corpuscular Volume 89.0 FL Mean Corpuscular Hemoglobin 31.3 PG Mean Corpuscular Hemoglobin Concent 35.1 % Red Cell Distribution Width 12.8 % Platelet Count 167 TH/MM3 Mean Platelet Volume 7.6 FL Neutrophils (%) (Auto) 51.6 % Lymphocytes (%) (Auto) 35.5 % Monocytes (%) (Auto) 11.3 % Eosinophils (%) (Auto) 1.1 % Basophils (%) (Auto) 0.5 % Neutrophils # (Auto) 3.9 TH/MM3 Lymphocytes # (Auto) 2.7 TH/MM3 Monocytes # (Auto) 0.9 TH/MM3 Eosinophils # (Auto) 0.1 TH/MM3 Basophils # (Auto) 0.0 TH/MM3 CBC Comment DIFF FINAL Differential Comment Laboratory Tests Test 07/06/17 19:35 07/07/17 06:47 07/07/17 21:21 Total Bilirubin 0.4 MG/DL Direct Bilirubin 0.1 MG/DL Indirect Bilirubin 0.3 MG/DL Aspartate Amino Transf (AST/SGOT) 14 U/L Alanine Aminotransferase (ALT/SGPT) 25 U/L Alkaline Phosphatase 80 U/L Total Protein 6.6 GM/DL Albumin 3.7 GM/DL Blood Urea Nitrogen 8 MG/DL Creatinine 0.60 MG/DL Random Glucose 107 MG/DL Calcium Level 8.2 MG/DL Sodium Level 143 MEQ/L Potassium Level 3.8 MEQ/L Chloride Level 109 MEQ/L Carbon Dioxide Level 26.5 MEQ/L Anion Gap 8 MEQ/L Estimat Glomerular Filtration Rate 160 ML/MIN Iron Level 37 MCG/DL Total Iron Binding Capacity 218 MCG/DL Percent Iron Saturation 16.9 % Ferritin 111 NG/ML Vitamin B12 Level 1695 PG/ML 25-Hydroxy Vitamin D Total 19.1 ng/ML Microbiology Date/Time Source Procedure Growth Status 07/06/17 04:10 Blood Peripheral Aerobic Blood Culture - Preliminary NO GROWTH IN 1 DAY Resulted 07/06/17 04:10 Blood Peripheral Anaerobic Blood Culture - Preliminary NO GROWTH IN 1 DAY Resulted 07/06/17 04:00 Blood Peripheral Aerobic Blood Culture - Preliminary NO GROWTH IN 1 DAY Resulted 07/06/17 04:00 Blood Peripheral Anaerobic Blood Culture - Preliminary NO GROWTH IN 1 DAY Resulted 07/06/17 11:21 Cerebral Spinal Fluid Lumbar Puncture Fungal Smear - Final NO FUNGAL ELEMENTS SEEN. Resulted 07/06/17 11:21 Cerebral Spinal Fluid Lumbar Puncture Fungal Culture Pending Resulted 07/06/17 11:21 Cerebral Spinal Fluid Lumbar Puncture Acid Fast Stain - Final NO ACID FAST BACILLI SEEN Resulted 07/06/17 11:21 Cerebral Spinal Fluid Lumbar Puncture Mycobacterial Culture Pending Resulted 07/06/17 11:21 Cerebral Spinal Fluid Lumbar Puncture Gram Stain - Final Resulted 07/06/17 11:21 Cerebral Spinal Fluid Lumbar Puncture CSF Culture - Preliminary NO GROWTH IN 48 HOURS. Resulted 07/06/17 01:20 Nasal Washing Influenza Types A,B Antigen (SAMREEN) - Final NEGATIVE FOR FLU A AND B ANTIGEN.... Complete Imaging Last Impressions Lumbar Puncture Fluoroscopy 07/06/17 0000 Signed Impressions: Service Date/Time: Thursday, July 06, 2017 11:24 - CONCLUSION: Uncomplicated fluoroscopically guided lumbar puncture with pressures as above. Jonnathan Breen MD Head/Brain Mag Res Venography 07/06/17 0000 Signed Impressions: Service Date/Time: Thursday, July 06, 2017 18:18 - CONCLUSION: Normal exam Tanvir Gracia MD Head CT 07/06/17 0000 Signed Impressions: Service Date/Time: Thursday, July 06, 2017 01:36 - CONCLUSION: Normal examination for a patient of this age. No significant change has occurred. Giancarlo Buchanan MD Chest X-Ray 07/06/17 0000 Signed Impressions: Service Date/Time: Thursday, July 06, 2017 00:58 - CONCLUSION: No acute disease. Giancarlo Buchanan MD Brain MRI 07/06/17 0000 Signed Impressions: Service Date/Time: Thursday, July 06, 2017 18:18 - CONCLUSION: No acute intracranial findings Tanvir Gracia MD Physical Exam GENERAL: This is a well-nourished, well-developed male patient, in no apparent distress. Awake and alert. Sitting up in his bed in the dark. Mother is at the bedside. SKIN: Warm and dry. Small area of ecchymosis right anterior ankle. HEAD: Atraumatic. Normocephalic. No temporal or scalp tenderness. EYES: Pupils equal round and reactive. Extraocular motions intact. No scleral icterus. No injection or drainage. ENT: Nose without bleeding or purulent drainage. Throat without erythema, tonsillar hypertrophy or exudate. Uvula midline. Airway patent. NECK: Trachea midline. No lymphadenopathy. Supple, no meningeal signs, no neck stiffness. (+)tenderness over left SCM area. CARDIOVASCULAR: Regular rate and rhythm without murmurs, gallops, or rubs. RESPIRATORY: Clear to auscultation. Breath sounds equal bilaterally. No wheezes , rales, or rhonchi. GASTROINTESTINAL: Abdomen soft, non-tender, nondistended. No guarding. MUSCULOSKELETAL: Extremities without clubbing, cyanosis, or edema. No joint tenderness, effusion, or edema noted. No calf tenderness. NEUROLOGICAL: Awake and alert. Cranial nerves II through XII grossly intact. Motor and sensory grossly within normal limits. No focal neurologic findings. Normal speech. PSYCHIATRIC: Appropriate mood and affect. Normal judgement and insight. Calm and cooperative. PIV with no e/o infection (Tiffanie Gallardo) Assessment & Plan Remarks Cephalgia Possible meningoencephalitis Likely Viral meningitis -persistent headache after LP. Patient reports being stuck 4x for LP. ?CSF leak, post LP headache -LP 495 WBC, 25 RBC, 161.4 TP Workup neg thus far. MRI/MRV/EEG neg. HIV, Hepatitis, RPR neg -LP cx with no growth -HSV pending Seizure disorder with subtherapeutic Dilantin level and possible breakthrough seizure activity Recent URI, resolved Heartburn/GERD with taking Dilantin -GI following, EGD today Vitamin D Deficiency RECOMMENDATIONS: Consult anesthesia for possible blood patch Continue with IV Acyclovir D/C IV Ceftriaxone Follow up on CSF cultures and studies until finalized Recommended to patient he lie flat as much as possible. Also recommended pushing po fluids after EGD completed. follow up on Neurology assessment/recommendations Will follow up on EGD results Monitor clinically Further recommendations to follow KIMBERLY patient and mother who were appreciative of information and care given KIMBERLY Gaytan (Tiffanie Gallardo) Remarks The exam, history, and the medical decision-making described in the above note were completed with the assistance of the mid-level provider. I reviewed and agree with the findings presented. I attest that I had a [id number] encounter with the patient on the same day, and personally performed and documented my assessment and findings in the medical record. Complains of severe headache 9/10 in intensity. No Nausea, vomiting or vision problems. No fevers Exam no neck stiffness CTA BL Recs r/o Viral meningoencephalitis. follow HSV PCR in CSF. Continue acyclovir IV DC Ceftriaxone IV. Recommend Anesthesia consult to assess for spinal leak and try blood patch. CLEARED FOR ANY OR PROCEDURE. Does not need isolation. Not communicable meningitis. IR does not do CSF patches. kimberly patient and Mom in room. kimberly primary MD (Myra Wheeler MD) Tiffanie Gallardo July 08, 2017 09:44 Myra Wheeler MD July 08, 2017 13:19
[2017-07-08] MEDS: FAMOTIDINE 20 MG TAB PO SCH ×2 (10:03→21:50)
[2017-07-08] MEDS: SODIUM CHLORIDE 0.9% FLUSH 10 ML FLUSH IV FLUSH SCH ×2 (10:04→21:54)
[2017-07-08] MEDS: DOCUSATE SODIUM 50 MG/SENNA 8.6 MG TAB PO SCH ×2 (10:04→21:50)
--- NOTE | 2017-07-08 10:13 | HHI.PR ---
Subjective Remarks Follow up for headache, possible viral meningitis. Patient is ambulating well. No fever, chills. He is still having a lot of headache but controlled at this point. Objective Vitals Vital Signs Date Time Temp Pulse Resp B/P (MAP) Pulse Ox O2 Delivery O2 Flow Rate FiO2 07/08/17 08:00 98.1 91 18 150/74 (99) 98 07/08/17 04:00 97.8 82 18 139/88 (105) 98 07/08/17 00:00 98.6 80 18 138/80 (99) 98 07/07/17 20:00 98.1 80 18 130/60 (83) 97 07/07/17 16:00 98.5 83 18 130/72 (91) 97 07/07/17 13:18 20 07/07/17 10:32 18 I/O 07/07/17 07/07/17 07/07/17 07/08/17 07/08/17 07/08/17 07:00 15:00 23:00 07:00 15:00 23:00 Intake Total 1200 ml 500 ml Balance 1200 ml 500 ml Intake Oral 1200 ml IV Total 500 ml # Voids 6 3 2 Result Diagram: 07/07/17 0647 07/07/17 0647 Imaging Last Impressions Lumbar Puncture Fluoroscopy 07/06/17 0000 Signed Impressions: Service Date/Time: Thursday, July 06, 2017 11:24 - CONCLUSION: Uncomplicated fluoroscopically guided lumbar puncture with pressures as above. Jonnathan Breen MD Head/Brain Mag Res Venography 07/06/17 0000 Signed Impressions: Service Date/Time: Thursday, July 06, 2017 18:18 - CONCLUSION: Normal exam Tanvir Gracia MD Head CT 07/06/17 0000 Signed Impressions: Service Date/Time: Thursday, July 06, 2017 01:36 - CONCLUSION: Normal examination for a patient of this age. No significant change has occurred. Giancarlo Buchanan MD Chest X-Ray 07/06/17 0000 Signed Impressions: Service Date/Time: Thursday, July 06, 2017 00:58 - CONCLUSION: No acute disease. Giancarlo Buchanan MD Brain MRI 07/06/17 0000 Signed Impressions: Service Date/Time: Thursday, July 06, 2017 18:18 - CONCLUSION: No acute intracranial findings Tanvir Gracia MD Objective Remarks GENERAL: Alert, Oriented x 3, NAD. SKIN: Warm and dry. HEAD: Normocephalic. EYES: No scleral icterus. No injection or drainage. NECK: Supple, trachea midline. No JVD or lymphadenopathy. CARDIOVASCULAR: Regular rate and rhythm without murmurs, gallops, or rubs. RESPIRATORY: Breath sounds equal bilaterally. No accessory muscle use. GASTROINTESTINAL: Abdomen soft, non-tender, nondistended. MUSCULOSKELETAL: No cyanosis, or edema. BACK: Nontender without obvious deformity. No CVA tenderness. Procedures 07/06/17 - Lumbar puncture done by IR A/P Problem List: (1) Cephalalgia ICD Code: R51 - Headache (2) History of seizure ICD Code: Z87.898 - Personal history of other specified conditions Status: Chronic Assessment and Plan 26-year-old male with history of seizures presents with headache and neck pain Sepsis with acute meningitis, Cephalgia: Patient with persistent headache and neck pain. Patient with recent URI, now resolved. Patient met sepsis criteria upon arrival with WBC 14 K, tachycardia heart rate 99, suspected source- meningitis. -Lumbar puncture done 07/06, shows WBCs 495 and elevated protein 161. -CSF Gram stain with many WBCs, no AFBs, Culture with no growth x1day -Blood cultures with NGTD -HIV and hepatitis panel negative, awaiting HSV panel and RPR -ID consulted - currently off all anti-bacterials. Continue Acyclovir -Neurology consulted Seizure disorder: Chronic -Continue patient's Dilantin 100 mg 3 times a day -Dilantin 5.1 on 07/08/2017. 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 EGD 07/08/2017. Full code. Ambulation. SCDs. Discharge plan: Patient may be discharged home when cleared by Neurology. Hawa Gaytan DO July 08, 2017 10:13 am
[2017-07-08 10:54] LABS: HSV 1,PCR Negative (Negative)
[2017-07-08 11:51] VITALS: BP 158/73; PULSE 82; RESP 18; O2SAT 97
--- NOTE | 2017-07-08 14:59 | HHI.GIFU ---
Subjective Remarks Pt with continued abdominal pain, intermittent, still states related to his medication Also has not had BM since arrival, feels constipated Tolerating PO (Karolyn Jefferson) Objective Vitals I&O Vital Signs Date Time Temp Pulse Resp B/P (MAP) Pulse Ox O2 Delivery O2 Flow Rate FiO2 07/08/17 11:51 82 18 158/73 (101) 97 07/08/17 08:00 98.1 91 18 150/74 (99) 98 07/08/17 04:00 97.8 82 18 139/88 (105) 98 07/08/17 00:00 98.6 80 18 138/80 (99) 98 07/07/17 20:00 98.1 80 18 130/60 (83) 97 07/07/17 16:00 98.5 83 18 130/72 (91) 97 I/O 07/07/17 07/07/17 07/07/17 07/08/17 07/08/17 07/08/17 07:00 15:00 23:00 07:00 15:00 23:00 Intake Total 1200 ml 500 ml Balance 1200 ml 500 ml Intake Oral 1200 ml IV Total 500 ml # Voids 6 3 2 Laboratory Laboratory Tests Test 07/07/17 21:00 07/07/17 21:21 07/08/17 06:44 Urine Opiates Screen NEG Urine Barbiturates Screen POS Urine Amphetamines Screen NEG Urine Benzodiazepines Screen NEG Urine Cocaine Screen NEG Urine Cannabinoids Screen POS Iron Level 37 Total Iron Binding Capacity 218 Percent Iron Saturation 16.9 Ferritin 111 Vitamin B12 Level 1695 25-Hydroxy Vitamin D Total 19.1 Phenytoin (Dilantin) Level 5.1 Date/Time Source Procedure Growth Status 07/06/17 04:10 Blood Peripheral Aerobic Blood Culture - Preliminary NO GROWTH IN 2 DAYS Resulted 07/06/17 04:10 Blood Peripheral Anaerobic Blood Culture - Preliminary NO GROWTH IN 2 DAYS Resulted 07/06/17 11:21 Cerebral Spinal Fluid Lumbar Puncture Fungal Smear - Final NO FUNGAL ELEMENTS SEEN. Resulted 07/06/17 11:21 Cerebral Spinal Fluid Lumbar Puncture Fungal Culture Pending Resulted 07/06/17 01:20 Nasal Washing Influenza Types A,B Antigen (SAMREEN) - Final NEGATIVE FOR FLU A AND B ANTIGEN.... Complete Imaging Last Impressions Lumbar Puncture Fluoroscopy 07/06/17 0000 Signed Impressions: Service Date/Time: Thursday, July 06, 2017 11:24 - CONCLUSION: Uncomplicated fluoroscopically guided lumbar puncture with pressures as above. Jonnathan Breen MD Head/Brain Mag Res Venography 07/06/17 Signed Impressions: Service Date/Time: Thursday, July 06, 2017 18:18 - CONCLUSION: Normal exam Tanvir Gracia MD Head CT 07/06/17 Signed Impressions: Service Date/Time: Thursday, July 06, 2017 01:36 - CONCLUSION: Normal examination for a patient of this age. No significant change has occurred. Giancarlo Buchanan MD Chest X-Ray 07/06/17 Signed Impressions: Service Date/Time: Thursday, July 06, 2017 00:58 - CONCLUSION: No acute disease. Giancarlo Buchanan MD Brain MRI 07/06/17 Signed Impressions: Service Date/Time: Thursday, July 06, 2017 18:18 - CONCLUSION: No acute intracranial findings Tanvir Gracia MD Physical Exam HEENT: Normocephalic; atraumatic CHEST: Even/unlabored CARDIAC: RRR ABDOMEN: Soft, nondistended, nontender; bowel sounds active EXTREMITIES: No clubbing, cyanosis, or edema. SKIN: Normal; no rash; no jaundice. 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 (Karolyn Jefferson [facility]) Assessment and Plan Plan Assessment: - Epigastric pain/heartburn Pt states symptoms only related to Dilantin use. Symptoms are so severe when he takes the Dilantin that he has spread his doses out throughout the day instead of taking it as prescribed TID. Also has been taking Ibuprofen to help with frequent headaches and abdominal pain. Denies any changes in bowel movements, melena. Has never had EGD or colonoscopy. Denies ETOH Smoke 1 PPD cigarettes also admits to occasional marijuana use - Nausea- states only when he had headaches, denies emesis - Viral meningitis- neurology and ID following - Seizure disorder- on Dilantin- subtherapeutic level (07/08) EGD was cancelled for today by anesthesia, ID has cleared the patient states he is not contagious. Will reschedule for EGD tomorrow. Pt with complaints of constipation, tried Milk of magnesia and Senokot with no relief yet. Plan: EGD tomorrow Obtain consent NPO after MN Pepcid Mag Citrate x 1 Antiemetics PRN Supportive care Further recommendations based on findings of above Pt has been seen and examined by myself and Dr. Wright and this note is written on her behalf (Karolyn Jefferson) Karolyn Jefferson July 08, 2017 14:59 Sydnie Wright MD July 08, 2017 18:13
[2017-07-08 16:00] VITALS: BP 137/71; PULSE 78; RESP 18; TEMP 97.7; O2SAT 99
[2017-07-08] MEDS ORDERED: MAGNESIUM CITRATE SOLN 300 ML BTL PO ONE (16:00)
[2017-07-08] MEDS: PHENYTOIN SUSP 100 MG/4 ML CUP PO SCH (16:41)
[2017-07-08 20:00] VITALS: BP 137/82; PULSE 83; RESP 18; TEMP 99.6; O2SAT 96
[2017-07-08 23:51] LABS: CSF CRYPTOCOCCUS ANTIGEN NOT DETECTED (NEGATIVE); HAEMOPHILUS FLU AG TYPE B Not Detected (Not Detected)
[2017-07-09] VITALS: BP 141/64; PULSE 83; RESP 18; TEMP 98.3; O2SAT 97
[2017-07-09] MEDS: PHENYTOIN SUSP 100 MG/4 ML CUP PO SCH ×3 (00:02→16:25)
[2017-07-09] MEDS: ACETAMIN 325 MG/BUTALBITAL 50 MG/CAFFEINE 40 MG TAB PO PRN ×3 (00:02→12:08)
[2017-07-09] MEDS: ACETAMINOPHEN/HYDROcodone 325 MG/7.5 MG TAB PO PRN ×4 (01:18→22:05)
[2017-07-09 04:00] VITALS: BP 132/73; PULSE 90; RESP 18; TEMP 98.4; O2SAT 98
[2017-07-09] MEDS: ACYCLOVIR INJ 1,050 MG in SODIUM CHLORIDE 0.9% INJ 150 ML IV SCH ×2 (04:49→14:52)
[2017-07-09 08:17] VITALS: BP 133/82; PULSE 87; RESP 18; TEMP 98.3; O2SAT 98
[2017-07-09] MEDS: FAMOTIDINE 20 MG TAB PO SCH ×2 (09:28→21:09)
[2017-07-09] MEDS: DOCUSATE SODIUM 50 MG/SENNA 8.6 MG TAB PO SCH ×2 (09:28→21:09)
[2017-07-09] MEDS: SODIUM CHLORIDE 0.9% FLUSH 10 ML FLUSH IV FLUSH SCH ×2 (09:28→21:09)
--- NOTE | 2017-07-09 10:40 | HHI.PR ---
Subjective Remarks Follow up for headache, possible bacterial/viral meningitis. Patient is currently doing better. Headache is better. No fever, chills. Scheduled for EGD today. He will probably undergo blood patch procedure by anesthesiology today. Objective Vitals Vital Signs Date Time Temp Pulse Resp B/P (MAP) Pulse Ox O2 Delivery O2 Flow Rate FiO2 07/09/17 08:17 98.3 87 18 133/82 (99) 98 07/09/17 04:00 98.4 90 18 132/73 (92) 98 07/09/17 00:00 98.3 83 18 141/64 (89) 97 07/08/17 20:00 99.6 83 18 137/82 (100) 96 07/08/17 16:00 97.7 78 18 137/71 (93) 99 07/08/17 11:51 82 18 158/73 (101) 97 I/O 07/08/17 07/08/17 07/08/17 07/09/17 07/09/17 07/09/17 07:00 15:00 23:00 07:00 15:00 23:00 # Voids 2 5 Result Diagram: 07/07/17 0647 07/07/17 0647 Objective Remarks GENERAL: Alert, Oriented x 3, NAD. SKIN: Warm and dry. HEAD: Normocephalic. EYES: No scleral icterus. No injection or drainage. NECK: Supple, trachea midline. No JVD or lymphadenopathy. CARDIOVASCULAR: Regular rate and rhythm without murmurs, gallops, or rubs. RESPIRATORY: Breath sounds equal bilaterally. No accessory muscle use. GASTROINTESTINAL: Abdomen soft, non-tender, nondistended. MUSCULOSKELETAL: No cyanosis, or edema. BACK: Nontender without obvious deformity. No CVA tenderness. Procedures 07/06/17 - Lumbar puncture done by IR A/P Problem List: (1) Cephalalgia ICD Code: R51 - Headache (2) History of seizure ICD Code: Z87.898 - Personal history of other specified conditions Status: Chronic Assessment and Plan 26-year-old male with history of seizures presents with headache and neck pain Sepsis with acute meningitis, Cephalgia: Patient with persistent headache and neck pain. Patient with recent URI, now resolved. Patient met sepsis criteria upon arrival with WBC 14 K, tachycardia heart rate 99, suspected source- meningitis. -Lumbar puncture done 07/06, shows WBCs 495 and elevated protein 161. -CSF Gram stain with many WBCs, no AFBs, Culture with no growth x1day -Blood cultures with NGTD -HIV and hepatitis panel negative, so are HSV panel and RPR -ID consulted - currently off all anti-bacterials. Continue Acyclovir -Neurology consulted - Neurology is okay for patient to be discharged. Seizure disorder: Chronic -Continue patient's Dilantin 150mg TID per neurology recs. -Dilantin 5.1 on 07/08/2017. 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 EGD 07/09/2017. Possible blood patch procedure today as well. Full code. Ambulation. SCDs. Probable discharge today or in the AM depending on clinical progress today. Hawa Gaytan DO July 09, 2017 10:40 am
[2017-07-09 11:46] LABS: CSF CRYPTOCOCCUS AG CONF ND (NOT DETECTD)
[2017-07-09 12:00] VITALS: BP 138/80; PULSE 74; RESP 18; TEMP 98; O2SAT 96
[2017-07-09] MEDS ORDERED: PROPOFOL 200 MG/20 ML AMP IV ONE (12:00)
[2017-07-09] MEDS ORDERED: LIDOCAINE HCL 1% PF 5 ML SYRINGE OTHER ONE (12:00)
--- NOTE | 2017-07-09 14:22 | GIPROC ---
[facility] [address] [facility]. [facility], [address] EGD PROCEDURE REPORT EXAM DATE: 07/09/2017 PATIENT NAME: Agapito Storey MR #: [id number] BIRTHDATE: 1990 ATTENDING: Sydnie Wright MD ORDER #: [id number] SUBSTITUTE CROSSING GUARD: Sara Dee and Celeste Jett STATUS: inpatient INDICATIONS: The patient is a 26 yr old male here for an EGD due to reflux possible malabsorbtion PROCEDURE PERFORMED: EGD w/ biopsy MEDICATIONS: None and Per Anesthesia. TOPICAL ANESTHETIC: none CONSENT: The patient understands the risks and benefits of the procedure and understands that these risks include, but are not limited to: sedation, allergic reaction, infection, perforation and/or bleeding. Alternative means of evaluation and treatment include, among others: physical exam, x-rays, and/or surgical intervention. The patient elects to proceed with this endoscopic procedure. medical equipment was checked for proper function. Hand hygiene and appropriate measures for infection prevention was taken. After the risks, benefits and alternatives of the procedure were thoroughly explained, Informed consent was verified, confirmed and timeout was successfully executed by the treatment team. The patient was anesthetized with topical anesthesia and the Pentax [id number] endoscope was introduced through the mouth and advanced to the second portion of the duodenum. Retroflexed views revealed a hiatal hernia The gastroscope was then slowly withdrawn and removed. Gastritis antrum-biopsy duodenitis dodenal bulb-biopsy duodenum second portion-biopsy esophagitis distal esophagus -biopsy erythema vocal cords. ADVERSE EVENTS: There were no complications. IMPRESSIONS: 1. Gastritis antrum-biopsy duodenitis dodenal bulb-biopsy duodenum second portion-biopsy esophagitis distal esophagus -biopsy 2. Retroflexed views revealed a hiatal hernia RECOMMENDATIONS: 1. Await biopsy results. Biopsy results will not be ready for 7-10 days. If you don't hear from us in two weeks, call our office for biopsy results. 2. Anti-reflux regimen 3. Continue PPI 4. Abdominal us resume diet PATIENT CONDITION: stable DISPOSITION: Inpatient REPEAT EXAM: Return 1 year EGD Sydnie Bratu MD eSigned: Sydnie Wright MD 07/09/2017 2:21 PM cc: PATIENT NAME: Agapito Storey MR#: [id number]
--- NOTE | 2017-07-09 16:07 | HHI.PR ---
Addendum to Inpatient Note Addendum Reason: Additional Documentation Additional Information Patient gone for procedure reviewed lab results HSV CSF negative will discontinue acyclovir IV. Hopefully headaches will resolve after blood patch placed. Follow EGD results. Dr. Yadira Aguayo covering for me this weekend. Myra Wheeler MD July 09, 2017 16:07
[2017-07-09 16:28] VITALS: BP 123/71; PULSE 73; RESP 18; TEMP 98.2; O2SAT 97
--- NOTE | 2017-07-09 16:41 | RADRPT ---
EXAM DATE/TIME: 07/09/2017 15:38 [place] COMPARISON: No previous studies available for comparison. EXTERNAL COMPARISON : [facility], CT abdomen, March 11, 2015. INDICATIONS : Abdominal pain. MEDICAL HISTORY : Sleep apnea. Seizures. Pneumonia. SURGICAL HISTORY : Tonsillectomy. Right elbow surgery. ENCOUNTER: Initial ACUITY: 3 days PAIN SCORE: 2/10 LOCATION: Abdomen. MEASUREMENTS: LIVER: 18.3 cm length COMMON DUCT: 4 mm RIGHT KIDNEY: 13.7 x 6.9 x 4.9 cm LEFT KIDNEY: 14.2 x 6.1 x 6.5 cm SPLEEN: 14.2 cm length AORTA: 2.2 cm maximal FINDINGS: LIVER: Normal echotexture without focal lesion or ductal dilatation. COMMON DUCT: No intraluminal mass or stone visualized. GALLBLADDER: Contains no stones, demonstrates no wall thickening or pericholecystic fluid. PANCREAS: Largely obscured by bowel gas. RIGHT KIDNEY: No hydronephrosis, stone or mass. LEFT KIDNEY: No hydronephrosis, stone or mass. SPLEEN: No focal lesion. AORTA: Proximal aorta not visualized. Otherwise non-aneurysmal. IVC: Within normal limits. CONCLUSION: 1. Mild hepatomegaly. 2. Limited visualization of the pancreas and proximal aorta due to overlying bowel gas. 3. Otherwise, unremarkable abdominal ultrasound exam. Jonnathan Breen MD on July 09, 2017 at 16:37 Board Certified Radiologist. This report was verified electronically.
[2017-07-09] MEDS ORDERED: SUMAtriptan INJ 6 MG/0.5 ML VIAL SQ ONE (17:00)
[2017-07-09 20:00] VITALS: BP 106/54; PULSE 68; RESP 18; TEMP 98.5; O2SAT 100
[2017-07-09] MEDS: TOPIRAMATE 25 MG TAB PO SCH (21:09)
[2017-07-10] VITALS (7 sets, daily range): BP systolic 90–147; BP diastolic 59–83; PULSE 76–94; RESP 18; TEMP 97.2–99; O2SAT 96–100
[2017-07-10] MEDS: PHENYTOIN SUSP 100 MG/4 ML CUP PO SCH ×4 (01:00→23:54)
[2017-07-10] MEDS: ACETAMINOPHEN/HYDROcodone 325 MG/7.5 MG TAB PO PRN ×2 (03:12→09:39)
--- NOTE | 2017-07-10 08:20 | HHI.PR ---
Subjective Remarks Pt seen and examined. AFVSS. No acute events overnight. Headache slightly better at 7/10 but continues to worry patient. Located over top of head and back of neck but denies neck stiffness. Endorses photophobia and nausea. Denies fever, chills, vomiting, CP, SOB, or abdominal pain. Tolerating PO. Ambulating. Pt endorses urinary urgency and hesitancy. He states he has to bear down to urinate which is new for him. Endorses mild dysuria. Symptoms are new and he has never had initiating urination before. Denies hematuria. Endorses low back pain but states it may be attributable to the LP. Objective Vitals Vital Signs Date Time Temp Pulse Resp B/P (MAP) Pulse Ox O2 Delivery O2 Flow Rate FiO2 07/10/17 04:00 97.8 90 18 127/80 (96) 100 07/10/17 00:00 97.2 94 18 143/83 (103) 98 07/09/17 20:00 98.5 68 18 106/54 (71) 100 07/09/17 16:28 98.2 73 18 123/71 (88) 97 07/09/17 14:30 97.9 80 20 145/77 (99) 99 07/09/17 12:00 98.0 74 18 138/80 (99) 96 07/09/17 08:17 98.3 87 18 133/82 (99) 98 I/O 07/09/17 07/09/17 07/09/17 07/10/17 07/10/17 07/10/17 07:00 15:00 23:00 07:00 15:00 23:00 Intake Total 300 ml Balance 300 ml Other 300 ml # Voids 5 3 Result Diagram: 07/07/17 0647 07/07/17 0647 Objective Remarks GENERAL: WN, WD male sitting up in bed in NAD. SKIN: Warm and dry. HEENT: AT/NC. Pupils equal and round. MMM. NECK: Supple no tender LAD or JVD. No meningeal signs. HEART: RRR no m/r/g. LUNGS: CTAB without wheezes or crackles. ABDOMEN: +BS, soft, NT, ND. EXTREMITIES: No LE edema. 2+ pedal pulses. NEURO: Awake and alert. Nonfocal. PSYCH: Appropriate mood and affect. Procedures 07/06/17 - Lumbar puncture done by IR A/P Problem List: (1) Cephalalgia ICD Code: R51 - Headache (2) History of seizure ICD Code: Z87.898 - Personal history of other specified conditions Status: Chronic Assessment and Plan 26-year-old male with history of seizure disorder admitted 07/07 for severe holocephalic headache and neck pain and found to have leukocytosis. 1. Cephalgia possibly viral meningoencephalitis - MRI brain with no acute findings, MRV negative - LP attempted x 3 in ED on 07/06 and successfully performed under IR fluoroscopy - CSF fluid with 495 WBCs and elevated total protein of 161.4 - CSF and blood cultures remain negative - CSF HSV, N meningitidis, and cryptococcus negative - ID consulted, appreciate reccs Vancomycin 07/06-07/07 Rocephin 07/06-07/08 Acyclovir 07/06-07/09 - HIV, RPR, and hepatitis profile negative - EEG negative for seizure activity - UDS positive for barbiturates and cannabis - Anesthesia consulted for possible blood patch given persistent GRANADO following LP but unable to be done - Restart Fioricet - Continue Topamax 2. Dysuria/urgency/hesitation - Check U/A - If negative and symptoms persist consider bladder u/s 3. Seizure disorder, chronic - Continue Dilantin 150 mg TID - Dilantin continues to be subtherapeutic but increasing; steady state takes 5- 10 days - Continue current dose and patient will need f/u monitoring of Dilantin with neurology 4. Gastritis/duodenitis/esophagitis - S/P EGD 07/09 - D/C H2 wes and start PPI - Antireflux regimen - EGD in 1 year - Biopsy results anticipated in 7-10 days - Appreciate GI reccs DVT prophylaxis: SCDs Discharge Planning Pending clearance from ID, possibly today if patient feels ready if not tomorrow morning Ronda Durand MD July 10, 2017 08:20
[2017-07-10] MEDS: SODIUM CHLORIDE 0.9% FLUSH 10 ML FLUSH IV FLUSH SCH ×2 (09:00→21:36)
[2017-07-10] MEDS: PANTOPRAZOLE SOD 40 MG DELAYED RELEASE TAB PO SCH (09:31)
[2017-07-10] MEDS: DOCUSATE SODIUM 50 MG/SENNA 8.6 MG TAB PO SCH ×2 (09:31→21:35)
[2017-07-10] MEDS: ACETAMIN 325 MG/BUTALBITAL 50 MG/CAFFEINE 40 MG TAB PO PRN ×3 (11:00→23:54)
--- NOTE | 2017-07-10 11:06 | HHI.PR ---
Review/Management Diagnosis/Plan: (1) Viral meningitis ICD Codes: A87.9 - Viral meningitis, unspecified Status: Acute Plan: lymphocytic pleocytosis with elevated wbc >400 and elevated protein and clinical symptoms suggestive of vial meningitis recs Doing better Cultures negative thus far (2) History of seizure ICD Codes: Z87.898 - Personal history of other specified conditions Status: Chronic Plan: EEG no seizure activity Dilantin level slightly subtherapeutic Would suggest Dilantin 200 mg 3 times daily Discussed that the other alternative seizure medications patient feels most comfortable with this medication Can take Fioricet as needed was given 10-15 tablets total should not take more than that per month as it can cause rebound headaches Is to follow-up with his primary care physician and neurologist Discussed with patient and his mother at bedside and answered their questions Subjective Subjective Comments No acute events reported Headache better Mother at bedside No chest pain No dyspnea Active Medications Current Medications Medications (Trade) Dose Ordered Sig/Arely Route Start Time Stop Time Status Last Admin (NS Flush) 2 ml UNSCH PRN IV FLUSH 07/06/17 04:30 (NS Flush) 2 ml BID IV FLUSH 07/06/17 09:00 07/09/17 21:09 (Tylenol) 650 mg Q4H PRN PO 07/06/17 04:30 (Zofran Odt) 4 mg Q6H PRN PO 07/06/17 04:30 (Narcan Inj) 0.4 mg UNSCH PRN IV PUSH 07/06/17 04:30 (Linda-Colace) 1 tab BID PO 07/06/17 09:00 07/10/17 09:31 (Milk Of Magnesia Liq) 30 ml Q12H PRN PO 07/06/17 04:30 07/08/17 10:19 (Senokot) 17.2 mg Q12H PRN PO 07/06/17 04:30 07/07/17 20:53 (Dulcolax Supp) 10 mg DAILY PRN RECTAL 07/06/17 04:30 (Lactulose Liq) 30 ml DAILY PRN PO 07/06/17 04:30 07/10/17 09:35 ([place] 7.5-325 Mg) 1 tab Q6H PRN PO 07/06/17 16:15 07/10/17 09:39 Lactated Ringer's 1,000 ml @ 30 mls/hr Q24H PRN IV 07/08/17 06:00 07/11/17 05:59 07/09/17 12:35 Sodium Chloride 500 ml @ 30 mls/hr [id number] PRN IV 07/08/17 06:00 07/11/17 05:59 (Betadine 5% Antisepsis Kit) 1 applic [employer]AL LOCATION MANAGER PRN EACH NARE 07/08/17 06:00 07/11/17 05:59 (Chlorhexidine 2% Cloth) 3 pack FUNERAL LOCATION MANAGER PRN TOPICAL 07/08/17 06:00 07/11/17 05:59 (Dilantin Liq) 150 mg Q8H PO 07/08/17 17:00 07/10/17 09:32 (Topamax) 25 mg HS PO 07/09/17 21:00 07/09/17 21:09 (Protonix) 40 mg DAILY PO 07/10/17 09:00 07/10/17 09:31 (Fioricet 325-50-40) 1 tab Q6H PRN PO 07/10/17 09:30 07/10/17 11:00 Allergies Allergies Coded Allergies No Known Allergies (Unverified Adverse Reaction, Unknown, 07/05/17) Review of Systems All other ROS: ROS reviewed as documented in chart Exam I&O / VS Vital Signs Date Time Temp Pulse Resp B/P (MAP) Pulse Ox O2 Delivery O2 Flow Rate FiO2 07/10/17 08:33 98.1 82 18 141/79 (99) 97 07/10/17 04:00 97.8 90 18 127/80 (96) 100 07/10/17 00:00 97.2 94 18 143/83 (103) 98 07/09/17 20:00 98.5 68 18 106/54 (71) 100 07/09/17 16:28 98.2 73 18 123/71 (88) 97 07/09/17 14:30 97.9 80 20 145/77 (99) 99 07/09/17 12:00 98.0 74 18 138/80 (99) 96 General: Alert and Oriented Eye: EOMI, Normal conjuctiva Respiratory: Non-labored respirations Musculoskeletal: ROM Neurologic: Alert, Oriented, Normal motor, No focal defects, CN II-XII intact Psychiatric: Cooperative, Appropriate mood & affect, Normal judgement Exam Comments alert, ox 3, follows, ou 3-2mm, eomi, neck rom sitting up in bed looks comfortable conversation without any difficulty no facial asymmetry in all 4 limbs to gravity Objective Micro and Labs Date/Time Source Procedure Growth Status 07/06/17 04:10 Blood Peripheral Aerobic Blood Culture - Preliminary NO GROWTH IN 4 DAYS Resulted 07/06/17 04:10 Blood Peripheral Anaerobic Blood Culture - Preliminary NO GROWTH IN 4 DAYS Resulted 07/06/17 11:21 Cerebral Spinal Fluid Lumbar Puncture Fungal Smear - Final NO FUNGAL ELEMENTS SEEN. Resulted 07/06/17 11:21 Cerebral Spinal Fluid Lumbar Puncture Fungal Culture Pending Resulted 07/06/17 01:20 Nasal Washing Influenza Types A,B Antigen (SAMREEN) - Final NEGATIVE FOR FLU A AND B ANTIGEN.... Complete Chapin Baptiste MD July 10, 2017 11:06
[2017-07-10 14:03] LABS: URINE COLOR YELLOW (YELLW/STRAW)
[2017-07-10 14:04] LABS: BILIRUBIN, URINE NEGATIVE (NEG); BLOOD, URINE NEG (NEG); GLUCOSE,URINE NEG (NEG); KETONE, URINE NEG (NEG); NITRITE,URINE NEG (NEG); SQUAMOUS EPITHELIAL CELL URINE <1 /hpf (0-5); URINE LEUKOCYTE ESTERASE NEGATIVE (NEG)
[2017-07-10 14:05] LABS: AMORPHOUS SEDIMENT, URINE FEW; BACTERIA, URINE RARE /hpf
--- NOTE | 2017-07-10 14:33 | HHI.GIFU ---
Subjective Remarks Pt resting in bed Still no BM since admission Just had some Lactulose, has been passing gas Denies abdominal pain Denies nausea, vomiting (Karolyn Jefferson) Objective Vitals I&O Vital Signs Date Time Temp Pulse Resp B/P (MAP) Pulse Ox O2 Delivery O2 Flow Rate FiO2 07/10/17 12:43 98.5 76 18 147/79 (101) 100 07/10/17 08:33 98.1 82 18 141/79 (99) 97 07/10/17 04:00 97.8 90 18 127/80 (96) 100 07/10/17 00:00 97.2 94 18 143/83 (103) 98 07/09/17 20:00 98.5 68 18 106/54 (71) 100 07/09/17 16:28 98.2 73 18 123/71 (88) 97 07/09/17 14:30 97.9 80 20 145/77 (99) 99 I/O 07/09/17 07/09/17 07/09/17 07/10/17 07/10/17 07/10/17 07:00 15:00 23:00 07:00 15:00 23:00 Intake Total 300 ml Balance 300 ml Other 300 ml # Voids 5 3 Laboratory Laboratory Tests Test 07/10/17 12:00 Urine Color YELLOW Urine Turbidity CLOUDY Urine pH 7.0 Urine Specific [place] 1.015 Urine Protein NEG Urine Glucose (UA) NEG Urine Ketones NEG Urine Occult Blood NEG Urine Nitrite NEG Urine Bilirubin NEGATIVE Urine Urobilinogen LESS THAN 2.0 Urine Leukocyte Esterase NEGATIVE Urine RBC LESS THAN 1 Urine WBC 2 Urine Squamous Epithelial Cells <1 Urine Amorphous Sediment FEW Urine Bacteria RARE Microscopic Urinalysis Comment CULT NOT INDICATED Date/Time Source Procedure Growth Status 07/06/17 04:10 Blood Peripheral Aerobic Blood Culture - Preliminary NO GROWTH IN 4 DAYS Resulted 07/06/17 04:10 Blood Peripheral Anaerobic Blood Culture - Preliminary NO GROWTH IN 4 DAYS Resulted 07/06/17 11:21 Cerebral Spinal Fluid Lumbar Puncture Fungal Smear - Final NO FUNGAL ELEMENTS SEEN. Resulted 07/06/17 11:21 Cerebral Spinal Fluid Lumbar Puncture Fungal Culture Pending Resulted 07/06/17 01:20 Nasal Washing Influenza Types A,B Antigen (SAMREEN) - Final NEGATIVE FOR FLU A AND B ANTIGEN.... Complete Imaging Last Impressions Abdomen Ultrasound 5/18/18 0000 Signed Impressions: Service Date/Time: Sunday, July 09, 2017 15:38 - CONCLUSION: 1. Mild hepatomegaly. 2. Limited visualization of the pancreas and proximal aorta due to overlying bowel gas. 3. Otherwise, unremarkable abdominal ultrasound exam. Jonnathan Breen MD Lumbar Puncture Fluoroscopy 07/06/17 Signed Impressions: Service Date/Time: Thursday, July 06, 2017 11:24 - CONCLUSION: Uncomplicated fluoroscopically guided lumbar puncture with pressures as above. Jonnathan Breen MD Head/Brain Mag Res Venography 07/06/17 Signed Impressions: Service Date/Time: Thursday, July 06, 2017 18:18 - CONCLUSION: Normal exam Tanvir Gracia MD Head CT 07/06/17 Signed Impressions: Service Date/Time: Thursday, July 06, 2017 01:36 - CONCLUSION: Normal examination for a patient of this age. No significant change has occurred. Giancarlo Buchanan MD Chest X-Ray 07/06/17 Signed Impressions: Service Date/Time: Thursday, July 06, 2017 00:58 - CONCLUSION: No acute disease. Giancarlo Buchanan MD Brain MRI 07/06/17 Signed Impressions: Service Date/Time: Thursday, July 06, 2017 18:18 - CONCLUSION: No acute intracranial findings Tanvir Gracia MD Physical Exam HEENT: Normocephalic; atraumatic CHEST: Even/unlabored CARDIAC: RRR ABDOMEN: Soft, nondistended, nontender; bowel sounds active EXTREMITIES: No clubbing, cyanosis, or edema. SKIN: Normal; no rash; no jaundice. HOSPICE MUSIC THERAPY: No focal deficits; alert and oriented times three. (Karolyn Jefferson) Assessment and Plan Plan Assessment: - Epigastric pain/heartburn Pt states symptoms only related to Dilantin use. Symptoms are so severe when he takes the Dilantin that he has spread his doses out throughout the day instead of taking it as prescribed TID. Also has been taking Ibuprofen to help with frequent headaches and abdominal pain. Denies any changes in bowel movements, melena. Has never had EGD or colonoscopy. Denies ETOH Smoke 1 PPD cigarettes also admits to occasional marijuana use - Nausea- states only when he had headaches, denies emesis - Viral meningitis- neurology and ID following - Seizure disorder- on Dilantin- subtherapeutic level (07/08) EGD was cancelled for today by anesthesia, ID has cleared the patient states he is not contagious. Will reschedule for EGD tomorrow. Pt with complaints of constipation, tried Milk of magnesia and Senokot with no relief yet. (07/10) EGD --> Gastritis in the antrum. Duodenitis in the duodenal bulb. Biopsy from the second portion of the duodenum. Esophagitis distal esophagus. Hiatal hernia. Pt reports no BM since admission, just had some Lactulose and feels like he will have on soon, he is passing gas. Abdomen US --> Mild hepatomegaly. Limited visualization of the pancreas and proximal aorta due to overlying bowel gas. Otherwise, unremarkable abdominal ultrasound exam. Vit D low, Iron low Celiac panel pending Pt is planned for DC today pending ID clearance, if not today will go home tomorrow morning Plan: EGD biopsy pending Celiac panel pending Protonix If no relief with Lactulose, can try Relistor- pt has been on pain medication Avoid NSAIDs Avoid ETOH Antiemetics PRN Supportive care GI will sign off, have pt follow up with GI after discharge Pt has been seen and examined by myself and Dr. Wright and this note is written on her behalf (Karolyn Jefferson) Karolyn Jefferson July 10, 2017 14:33 Sydnie Wright MD July 10, 2017 18:17
[2017-07-10] MEDS: TOPIRAMATE 25 MG TAB PO SCH (21:35)
[2017-07-11] VITALS: BP 123/74; PULSE 86; RESP 18; TEMP 98.1; O2SAT 96
[2017-07-11 04:00] VITALS: BP 150/78; PULSE 87; RESP 18; TEMP 98; O2SAT 99
[2017-07-11] MEDS: ACETAMIN 325 MG/BUTALBITAL 50 MG/CAFFEINE 40 MG TAB PO PRN (06:35)
[2017-07-11] MEDS ORDERED: Acet-Butal-Caff 325-50-40 Mg PO (07:16)
[2017-07-11] MEDS ORDERED: PROT40TA PO (07:16)
[2017-07-11] MEDS ORDERED: DILA100C PO (07:16)
--- NOTE | 2017-07-11 07:17 | HHI.DCPOC ---
Discharge Care Plan Diagnosis: (1) Viral meningitis (2) Post lumbar puncture headache Goals to Promote Your Health * To prevent worsening of your condition and complications * To maintain your health at the optimal level Directions to Meet Your Goals Take your medications as prescribed Follow your dietary instruction Follow activity as directed Keep your appointments as scheduled Take your immunizations and boosters as scheduled If your symptoms worsen call your PCP, if no PCP go to Urgent Care Center or Emergency Room Smoking is Dangerous to Your Health. Avoid second hand smoke Call the 24-hour hour crisis hotline for domestic abuse at Ronda Durand MD July 11, 2017 07:17
--- NOTE | 2017-07-11 07:20 | HHI.PR ---
Subjective Remarks Pt seen and examined for f/u of viral meningitis and post-LP headache. He reports he is feeling better. Headache is still present but improved at 5/10 and alleviated with Fioricet. He feels ready to go home. Denies neck stiffness, fever, chills, abdominal pain, nausea, vomiting. He hasn't had a BM in nearly a week but attributes this to not hydrating enough and laying around in bed. He denies any discomfort and states he is passing gas. He feels he will be able to move his bowels when he goes home. He has been taking stool softeners and laxatives. He declines an enema. He also reports his urinary symptoms have completely resolved and he is voiding without issues or dysuria. Objective Vitals Vital Signs Date Time Temp Pulse Resp B/P (MAP) Pulse Ox O2 Delivery O2 Flow Rate FiO2 07/11/17 04:00 98.0 87 18 150/78 (102) 99 07/11/17 00:00 98.1 86 18 123/74 (90) 96 07/10/17 20:00 99.0 88 18 125/75 (92) 96 07/10/17 16:35 98.0 81 18 147/73 (97) 97 07/10/17 12:43 98.5 76 18 147/79 (101) 100 07/10/17 08:33 98.1 82 18 141/79 (99) 97 I/O 07/10/17 07/10/17 07/10/17 07/11/17 07/11/17 07/11/17 07:00 15:00 23:00 07:00 15:00 23:00 # Voids 3 2 Result Diagram: 07/07/17 0647 07/07/17 0647 Objective Remarks GENERAL: WN, WD male sitting up in bed in NAD. SKIN: Warm and dry. HEENT: AT/NC. Pupils equal and round. MMM. NECK: Supple no tender LAD or JVD. No meningeal signs. HEART: RRR no m/r/g. LUNGS: CTAB without wheezes or crackles. ABDOMEN: +BS, soft, NT, ND. EXTREMITIES: No LE edema. NEURO: Awake and alert. Nonfocal. PSYCH: Appropriate mood and affect. Procedures 07/06/17 - Lumbar puncture done by IR A/P Problem List: (1) Cephalalgia ICD Code: R51 - Headache (2) History of seizure ICD Code: Z87.898 - Personal history of other specified conditions Status: Chronic Assessment and Plan 26-year-old male with history of seizure disorder admitted 07/07 for severe holocephalic headache and neck pain and found to have leukocytosis. He has been managed for viral meningitis and post-LP headache. 1. Cephalgia possibly viral meningoencephalitis - MRI brain with no acute findings, MRV negative - LP attempted x 3 in ED on 07/06 and successfully performed under IR fluoroscopy - CSF fluid with 495 WBCs and elevated total protein of 161.4 c/w viral picture - CSF and blood cultures remain negative - CSF HSV, N meningitidis, and cryptococcus negative - ID consulted, appreciate reccs Vancomycin 07/06-07/07 Rocephin 07/06-07/08 Acyclovir 07/06-07/09 - HIV, RPR, and hepatitis profile negative - EEG negative for seizure activity - UDS positive for barbiturates and cannabis - Anesthesia consulted for possible blood patch given persistent GRANADO following LP but unable to be done - Fioricet PRN, counseled to avoid excessive use and only use when absolutely needed as an OP 2. Seizure disorder, chronic - Dilantin increased to 200 mg TID, f/u level as OP - Pt follows with his PCP as he doesn't have insurance and cannot afford to see a neurologist 3. Gastritis/duodenitis/esophagitis - S/P EGD 07/09 - Cont PPI - Antireflux regimen - Advised to avoid NSAIDs - EGD in 1 year - Biopsy results anticipated in 7-10 days - Appreciate GI reccs Discharge Planning Medically clear for d/c Ronda Durand MD July 11, 2017 07:20
--- NOTE | 2017-07-11 07:38 | HHI.DS ---
Discharge Summary Admission Date July 07, 2017 at 08:00 Discharge Date: July 11, 2017 Admitting Diagnosis Cephalgia, fever, rule out meningitis (1) Viral meningitis ICD Code: A87.9 - Viral meningitis, unspecified Status: Acute (2) Post lumbar puncture headache ICD Code: G97.1 - Other reaction to spinal and lumbar puncture (3) Cephalalgia ICD Code: R51 - Headache (4) History of seizure ICD Code: Z87.898 - Personal history of other specified conditions Status: Chronic Procedures 07/06/17 - Lumbar puncture done by IR Brief History - From Admission 26-year-old male with a history of seizure disorder however without any seizure activity over the past 3 years presented to the ED last night for evaluation of bilateral frontal throbbing headache, which started around 7 AM yesterday. Patient reported severe frontal pain. Stated the headaches are associated with photophobia, nausea without any emesis. He however denied any neck pain, febrile episode. He only complains of lingering phlegm producing cough. CBC/BMP: 07/07/17 0647 07/07/17 0647 Significant Findings Laboratory Tests Test 07/10/17 12:00 Urine Turbidity CLOUDY (CLEAR) Urine Bacteria RARE /hpf (NONE) Imaging Abdomen Ultrasound 07/09/17 0000 Signed Impressions: Service Date/Time: Sunday, July 09, 2017 15:38 - CONCLUSION: 1. Mild hepatomegaly. 2. Limited visualization of the pancreas and proximal aorta due to overlying bowel gas. 3. Otherwise, unremarkable abdominal ultrasound exam. Jonnathan Breen MD Lumbar Puncture Fluoroscopy 07/06/17 0000 Signed Impressions: Service Date/Time: Thursday, July 06, 2017 11:24 - CONCLUSION: Uncomplicated fluoroscopically guided lumbar puncture with pressures as above. Jonnathan Breen MD Head/Brain Mag Res Venography 07/06/17 0000 Signed Impressions: Service Date/Time: Thursday, July 06, 2017 18:18 - CONCLUSION: Normal exam Tanvir Gracia MD Head CT 07/06/17 0000 Signed Impressions: Service Date/Time: Thursday, July 06, 2017 01:36 - CONCLUSION: Normal examination for a patient of this age. No significant change has occurred. Giancarlo Buchanan MD Chest X-Ray 07/06/17 0000 Signed Impressions: Service Date/Time: Thursday, July 06, 2017 00:58 - CONCLUSION: No acute disease. Giancarlo Buchanan MD Brain MRI 07/06/17 0000 Signed Impressions: Service Date/Time: Thursday, July 06, 2017 18:18 - CONCLUSION: No acute intracranial findings Tanvir Gracia MD PE at Discharge GENERAL: WN, WD male sitting up in bed in NAD. SKIN: Warm and dry. HEENT: AT/NC. Pupils equal and round. MMM. NECK: Supple no tender LAD or JVD. No meningeal signs. HEART: RRR no m/r/g. LUNGS: CTAB without wheezes or crackles. ABDOMEN: +BS, soft, NT, ND. EXTREMITIES: No LE edema. NEURO: Awake and alert. Nonfocal. PSYCH: Appropriate mood and affect. Hospital Course 26-year-old male with history of seizure disorder admitted 07/07 for severe holocephalic headache and neck pain and found to have leukocytosis. LP done on 07/06 suggestive of likely viral etiology. He has been managed for viral meningitis and post-LP headache. Neurology and ID have been following. 1. Cephalgia possibly viral meningoencephalitis - MRI brain with no acute findings, MRV negative - LP attempted x 3 in ED on 07/06 and successfully performed under IR fluoroscopy - CSF fluid with 495 WBCs and elevated total protein of 161.4 c/w viral picture - CSF and blood cultures remain negative - CSF HSV, N meningitidis, and cryptococcus negative - ID consulted, appreciate reccs Vancomycin 07/06-07/07 Rocephin 07/06-07/08 Acyclovir 07/06-07/09 - HIV, RPR, and hepatitis profile negative - EEG negative for seizure activity - UDS positive for barbiturates and cannabis - Anesthesia consulted for possible blood patch given persistent GRANADO following LP but unable to be done - Fioricet PRN, counseled to avoid excessive use and only use when absolutely needed as an OP 2. Seizure disorder, chronic - Dilantin increased to 200 mg TID, f/u level as OP - Pt follows with his PCP as he doesn't have insurance and cannot afford to see a neurologist 3. Gastritis/duodenitis/esophagitis - S/P EGD 07/09 - Cont PPI - Antireflux regimen - Advised to avoid NSAIDs - EGD in 1 year - Biopsy results anticipated in 7-10 days - Appreciate GI reccs He was discharged in stable condition on 07/11. Pt Condition on Discharge: Good Discharge Disposition: Discharge Home Discharge Time: <= 30 minutes Discharge Instructions DIET: Follow Instructions for: As Tolerated, No Restrictions Activities you can perform: Regular-No Restrictions Follow up Referrals: Neurology - 1 Week PCP Follow-up - 1 Week New Orders: DILANTIN (FREE) - 1 Week New Medications: Pantoprazole (Protonix) 40 Mg Tab 40 MG PO DAILY for Ulcer Prevention, #30 TAB 0 Refills Phenytoin Extended (Dilantin) 100 Mg Cap 200 MG PO TID for Control Seizures, #180 CAP 0 Refills [Kicq-Ohrma-Dipc 325-50-40 Mg] () 1 TAB TAB 1 TAB PO Q6H PRN for MIGRAINE HEADACHE, #10 Continued Medications: Lidocaine Rectal (Lidocaine Rectal) 5 % Cream 1 APPLIC RECTAL DAILY PRN for PAIN, #1 TUBE 0 Refills Melatonin (Melatonin) 5 Mg Tab 5 MG PO HS PRN for SLEEP, TAB 0 Refills Discontinued Medications: Phenytoin Extended (Dilantin) 100 Mg Cap 100 MG PO 5 TIMES/DAY for Control Seizures, #90 CAP 0 Refills Ronda Durand MD July 11, 2017 07:37
[2017-07-11] MEDS: PHENYTOIN SUSP 100 MG/4 ML CUP PO SCH (08:28)
[2017-07-11] MEDS: PANTOPRAZOLE SOD 40 MG DELAYED RELEASE TAB PO SCH (08:28)
[2017-07-11] MEDS: DOCUSATE SODIUM 50 MG/SENNA 8.6 MG TAB PO SCH (08:28)
[2017-07-12 03:50] LABS: ENDOMYSIAL AB SCREEN ND (NEGATIVE); ENDOMYSIAL AB TITER ND (<1:5)
== END 2017-07-11 11:10 | disposition home or self-care (01) | DRG 872 ==
LOC: NEPD 23:15 → OBSVTOIN 07-06 04:26 → INTOOBSV 07-06 04:26 → NEDA 07-06 04:26 → NEPGCP 07-06 06:29 → OBSVTOIN 07-07 08:00 → N05A 07-07 14:32
PROVIDERS: ADMIT Family Medicine; ATTEND Family Medicine
PROC: 009U3ZX Drainage of Spinal Canal, Percutaneous Approach, Diagnostic (ICD-10-PCS; 2017-07-06)
PROC: B01BZZZ Fluoroscopy of Spinal Cord (ICD-10-PCS; 2017-07-06)
PROC: 0DB78ZX Excision of Stomach, Pylorus, Via Natural or Artificial Opening Endoscopic, Diagnostic (ICD-10-PCS; 2017-07-09)
PROC: 0DB38ZX Excision of Lower Esophagus, Via Natural or Artificial Opening Endoscopic, Diagnostic (ICD-10-PCS; 2017-07-09)
PROC: 0DB98ZX Excision of Duodenum, Via Natural or Artificial Opening Endoscopic, Diagnostic (ICD-10-PCS; principal; 2017-07-09 14:06)
DX: A41.9 Sepsis, unspecified organism (principal); A87.9 Viral meningitis, unspecified; G47.33 Obstructive sleep apnea (adult) (pediatric); F12.90 Cannabis use, unspecified, uncomplicated; G40.909 Epilepsy, unspecified, not intractable, without status epilepticus; F17.210 Nicotine dependence, cigarettes, uncomplicated; E55.9 Vitamin D deficiency, unspecified; K21.9 Gastro-esophageal reflux disease without esophagitis; K29.70 Gastritis, unspecified, without bleeding; K29.80 Duodenitis without bleeding; K20.9 Esophagitis, unspecified; K44.9 Diaphragmatic hernia without obstruction or gangrene; G97.1 Other reaction to spinal and lumbar puncture
CPT/HCPCS: 62270; 70450; 70546; 70553; 71045; 76700; 77003; 80048; 80074; 80076; 80185; 80307; 81001; 82306; 82607; 82728; 82784; 82945; 83516; 83540; 83550; 83605; 84157; 85025; 85610; 85730; 86403; 86592; 86703; 87015; 87040; 87070; 87102; 87116; 87205; 87206; 87529; 87804; 88305; 88312; 89051; 95819; A9579; J0133; J0696; J0780; J1200; J2270; J2550; J3030; J3370; J7030; J7040; J7120

== ENCOUNTER 2017-07-17 19:01 | Emergency (ER) | payer SELFPAY ==
[~2017-07-17] VITALS: Ht 188 cm; Wt 118.0 kg
[~2017-07-17 19:01] MED LIST changes: +Acet-Butal-Caff 325-50-40 Mg PO; +PROT40TA PO
[2017-07-17 19:07] VITALS: BP 151/85; PULSE 102; RESP 18; TEMP 98.9; O2SAT 99
--- NOTE | 2017-07-17 20:16 | PD ---
HPI Chief Complaint: Back/ Neck Pain or Injury Time Seen by Provider: 20:08 Travel History International Travel<30 days: No Contact w/Intl Traveler<30days: No Traveled to known affect area: No History of Present Illness HPI Patient returns today complaining of not having a bowel movement for the past 7 days or so. Patient denies any rectal bleeding, denies any rectal pain or any abdominal pain. He just feels bloated and is usually regular but after being given some narcotic pain medication while he was in the hospital he has now become irregular in his bowel movements, patient stated that when he was in the hospital he was given lactulose and that seemed to help. Patient has tried to use [id number] laxatives which have not seemed to improve his condition. Patient was seen on July 07 and admitted and had an LP performed by invasive procedure radiology, also had an MRA of brain which was read as normal exam, head CT that was read as no significant change in normal examination for patient 's age, abdominal ultrasound that showed mild hepatomegaly. A chest x-ray that was read by radiology as no acute disease, brain MRI is read by radiologist as no acute intracranial findings. LP performed on July 06 was consistent with viral meningitis patient had already giving given Rocephin initially but had cultures and blood cultures CSF and blood cultures were negative CSF HSV meningitides and cryptococcus were negative HIV RPR and hepatitis profile were also negative EEG was negative for any seizure activity. Patient was discharged on July 11 in good condition. In addition patient had Dr. Wright performed an endoscopy which showed gastritis in the antrum, duodenitis at the bulb and esophagitis of the distal esophagus, as well as a hiatal hernia. Patient states no known drug allergy Past medical history significant for tonsillectomy, seizures, viral meningitis, pneumonia, sleep apnea, smokes 1 pack a day, [facility] Past Medical History Asthma: No Blood Disorders: No Anxiety: No Depression: No Heart Rhythm Problems: No Cancer: No Cardiovascular Problems: No High Cholesterol: No Chest Pain: No Congestive Heart Failure: No COPD: No Diabetes: No Diminished Hearing: No Endocrine: No Genitourinary: No Immune Disorder: No Musculoskeletal: No Neurologic: Yes (SEIZURES) Psychiatric: No Reproductive: No Respiratory: Yes (viral meningitis) Immunizations Current: No Pneumonia: Yes Seizures: Yes Sleep Apnea: Yes Thyroid Disease: No Tetanus Vaccination: Unknown Influenza Vaccination: No Past Surgical History Tonsillectomy: Yes Other Surgery: Yes (TONSILS, RIGHT ARM SURGERY) Social History Alcohol Use: Yes ("TWICE A YEAR") Tobacco Use: Yes (1 ppd) Substance Use: Yes (marijuana OCCASIONALLY) Allergies-Medications (Allergen,Severity, Reaction): Coded Allergies: No Known Allergies (Unverified Adverse Reaction, Unknown, 07/17/17) Reported Meds & Prescriptions Reported Meds & Active Scripts Active Protonix (Pantoprazole Sodium) 40 Mg Tab 40 Mg PO DAILY Dilantin (Phenytoin Extended) 100 Mg Cap 200 Mg PO TID [Guim-Uxehn-Aeme 325-50-40 Mg] 1 TAB Tab 1 Tab PO Q6H PRN Reported Melatonin 5 Mg Tab 5 Mg PO HS PRN Review of Systems Except as stated in HPI: all other systems reviewed are Neg General / Constitutional: No: Fever Eyes: No: Visual changes HENT: No: Headaches Cardiovascular: No: Chest Pain or Discomfort Respiratory: No: Shortness of Breath Gastrointestinal: Positive: Constipation, No: Abdominal Pain Genitourinary: No: Dysuria Skin: No Rash Neurologic: No: Weakness Psychiatric: No: Depression Endocrine: No: Polydipsia Hematologic/Lymphatic: No: Easy Bruising Physical Exam Narrative GENERAL: Obese, white male who appears to be in no acute distress SKIN: Warm and dry. HEAD: Atraumatic. Normocephalic. EYES: Pupils equal and round. No scleral icterus. No injection or drainage. ENT: No nasal bleeding or discharge. Mucous membranes pink and moist. NECK: Trachea midline. No JVD. CARDIOVASCULAR: Regular rate and rhythm. RESPIRATORY: No accessory muscle use. Clear to auscultation. Breath sounds equal bilaterally. GASTROINTESTINAL: Abdomen soft, non-tender, nondistended. MUSCULOSKELETAL: Extremities without clubbing, cyanosis, or edema. No obvious deformities. NEUROLOGICAL: Awake and alert. No obvious cranial nerve deficits. Motor grossly within normal limits. Five out of 5 muscle strength in the arms and legs. Normal speech. PSYCHIATRIC: Appropriate mood and affect; insight and judgment normal. Data Data Last Documented VS Vital Signs Date Time Temp Pulse Resp B/P (MAP) Pulse Ox O2 Delivery O2 Flow Rate FiO2 07/17/17 19:07 98.9 102 18 151/85 (107) 99 MDM Medical Decision Making Medical Screen Exam Complete: Yes Emergency Medical Condition: Yes Medical Record Reviewed: Yes Differential Diagnosis Not applicable Narrative Course After clinical evaluation the patient does not have any abdominal rigidity/ rebound or guarding Diagnosis Primary Impression: Constipation Referrals: [facility] Patient Instructions: Constipation (ED), General Instructions Scripts Glycerin Adult Supp (Glycerin Adult Supp) 2 Gm Supp 2 GM RECTAL BID Y for CONSTIPATION, #6 SUPP 0 Refills Prov: Suman Madsen MD 07/17/17 Lactulose Liq (Lactulose Liq) 10 Gm/15 Ml Soln 30 ML PO Q6H Y for CONSTIPATION, #120 ML 0 Refills Prov: Suman Madsen MD 07/17/17 Disposition: 01 DISCHARGE HOME Condition: Stable Suman Madsen MD July 17, 2017 20:16
[2017-07-17] MEDS ORDERED: GLYC2SUP RECTAL (20:50)
[2017-07-17] MEDS ORDERED: LACT10SO PO (20:50)
== END 2017-07-17 21:11 | disposition home or self-care (01) ==
LOC: NEPE 19:01
DX: K59.00 Constipation, unspecified (principal); F12.90 Cannabis use, unspecified, uncomplicated; F17.200 Nicotine dependence, unspecified, uncomplicated
CPT/HCPCS: 99283